=== PATIENT | female | born 1945 | race African-American/Black ===

== ENCOUNTER 2017-11-02 21:36 | Inpatient (IN) | payer OTHER ==
[2017-11-02] MEDS: IV NORMAL SALINE 1000ML BAG 1,000 ML IV ×2 (09:00→22:30)
[2017-11-02] MEDS: IPRATRPIUM/ALBUTEROL 0.5/2.5MG 3 ML NEBU. NEB (22:18)
[2017-11-02 22:19] LABS: ADD MAN DIFF? NO
[2017-11-02 22:24] LABS: BASO # 0.1 x10^3/uL (0.0-0.2); BASO % 1 % (0-3); EOS # 0.1 x10^3/uL (0.0-0.7); EOS % 2 % (0-3); HEMATOCRIT 38.8 % (36.0-47.0); HEMOGLOBIN 12.7 g/dL (12.0-15.5); LYMPH # 1.8 x10^3/uL (1.0-4.8); LYMPH % 22 % (24-48); MEAN CORPUSCULAR HEMOGLOBIN 26 pg (25-35); MEAN CORPUSCULAR HGB CONC 33 g/dL (31-37); MEAN CORPUSCULAR VOLUME 81 fL (79-100); MONO # 1.1 x10^3/uL (0.0-1.1); MONO % 13 % (0-9); NEUT # 5.1 x10^3uL (1.8-7.7); NEUT % 62 % (31-73); PLATELET COUNT 240 x10^3/uL (140-400); RED BLOOD COUNT 4.82 x10^6/uL (3.50-5.40); RED CELL DISTRIBUTION WIDTH 15.4 % (11.5-14.5); WHITE BLOOD COUNT 8.3 x10^3/uL (4.0-11.0)
[2017-11-02 22:35] LABS: ANION GAP 13 (6-14); BLOOD UREA NITROGEN 20 mg/dL (7-20); BUN/CREATININE RATIO 15 (6-20); CALCIUM 8.7 mg/dL (8.5-10.1); CARBON DIOXIDE 26 mmol/L (21-32); CHLORIDE 102 mmol/L (98-107); CREATININE 1.3 mg/dL (0.6-1.0); GFR 48.7; GLUCOSE 145 mg/dL (70-99); POTASSIUM 3.6 mmol/L (3.5-5.1); SODIUM 141 mmol/L (136-145)
[2017-11-02 22:41] LABS: ALBUMIN 3.4 g/dL (3.4-5.0); ALBUMIN/GLOBULIN RATIO 0.7 (1.0-1.7); ALK PHOS 117 U/L (46-116); ALT (SGPT) 25 U/L (14-59); AST (SGOT) 34 U/L (15-37); LIPASE 80 U/L (73-393); TOTAL BILIRUBIN 0.3 mg/dL (0.2-1.0); TOTAL PROTEIN 8.1 g/dL (6.4-8.2)
[2017-11-02 22:48] LABS: CKMB INDEX 0.1 % (0-4); CKMB MASS 0.5 ng/mL (0.0-3.6); CREATINE KINASE 356 U/L (26-192)
[2017-11-02 22:48] LABS: TROPONINI < 0.017 ng/mL (0.000-0.055)
[2017-11-02 22:55] LABS: LACTIC ACID 2.2 mmol/L (0.4-2.0)
[2017-11-02] MEDS ORDERED: levOFLOXacin PER PHARMACY. MC (23:15)
[2017-11-02 23:45] LABS: NT-PRO BNP 26 pg/mL (0-124)
[2017-11-02] MEDS ORDERED: fentaNYL PF VIAL 100 MCG/2 ML VIAL IV (23:45)
[2017-11-02] MEDS ORDERED: ONDANSETRON PF 4 MG/2 ML VIAL. IV (23:45)
[2017-11-03] MEDS: methylPREDNISolone SOD SUCC PF 40 MG/ML VIAL. IV ×4 (01:18→18:13)
[2017-11-03] MEDS: IV NORMAL SALINE 1000ML BAG 1,000 ML IV ×2 (01:58→07:36)
[2017-11-03 03:10] LABS: ADD MAN DIFF? NO
[2017-11-03 04:27] LABS: BASO % 1 % (0-3); EOS # 0.1 x10^3/uL (0.0-0.7); EOS % 1 % (0-3); HEMATOCRIT 37.4 % (36.0-47.0); HEMOGLOBIN 12.3 g/dL (12.0-15.5); LYMPH # 1.7 x10^3/uL (1.0-4.8); LYMPH % 23 % (24-48); MEAN CORPUSCULAR HEMOGLOBIN 27 pg (25-35); MEAN CORPUSCULAR HGB CONC 33 g/dL (31-37); MEAN CORPUSCULAR VOLUME 81 fL (79-100); MONO # 0.7 x10^3/uL (0.0-1.1); MONO % 10 % (0-9); NEUT # 4.7 x10^3uL (1.8-7.7); NEUT % 65 % (31-73); PLATELET COUNT 224 x10^3/uL (140-400); RED BLOOD COUNT 4.61 x10^6/uL (3.50-5.40); RED CELL DISTRIBUTION WIDTH 15.4 % (11.5-14.5); WHITE BLOOD COUNT 7.2 x10^3/uL (4.0-11.0)
[2017-11-03 05:02] LABS: ALBUMIN/GLOBULIN RATIO 0.7 (1.0-1.7); ALK PHOS 108 U/L (46-116); ALT (SGPT) 19 U/L (14-59); ANION GAP 10 (6-14); AST (SGOT) 28 U/L (15-37); BLOOD UREA NITROGEN 17 mg/dL (7-20); BUN/CREATININE RATIO 17 (6-20); CALCIUM 8.6 mg/dL (8.5-10.1); CARBON DIOXIDE 24 mmol/L (21-32); CHLORIDE 105 mmol/L (98-107); GFR 65.9; GLUCOSE 111 mg/dL (70-99); POTASSIUM 3.4 mmol/L (3.5-5.1); SODIUM 139 mmol/L (136-145); TOTAL BILIRUBIN 0.3 mg/dL (0.2-1.0); TOTAL PROTEIN 7.3 g/dL (6.4-8.2)
[2017-11-03] MEDS: IPRATRPIUM/ALBUTEROL 0.5/2.5MG 3 ML NEBU. NEB ×4 (07:28→19:13)
[2017-11-03] MEDS: POTASSIUM CHLORIDE 20 MEQ TABLET.ER. PO (10:12)
[2017-11-03] MEDS: ENOXAPARIN 40 MG/0.4 ML SYRINGE. SQ (10:12)
[2017-11-03] MEDS: IOHEXOL 300 MG/ML 100ML VIAL. IV (10:30)
[2017-11-03] MEDS ORDERED: MECLIZINE HCL 12.5 MG TABLET. PO (11:30)
[2017-11-03] MEDS: POTASSIUM CHLORIDE 10 MEQ TABLET.ER. PO (12:00)
[2017-11-03] MEDS: OMEGA-3 FATTY ACIDS/FISH OIL 1,000 MG CAPSULE. PO (13:37)
[2017-11-03] MEDS: TRIAMTERENE/HCTZ 37.5/25MG TABLET. PO (13:39)
[2017-11-03] MEDS: amLODIPine BESYLATE 10 MG TABLET PO (13:39)
[2017-11-03] MEDS: PANTOPRAZOLE 40 MG TABLET.DR. PO (13:40)
[2017-11-03] MEDS: ATORVASTATIN CALCIUM 10 MG TABLET. PO (21:30)
[2017-11-03] MEDS: ACETAMINOPHEN 325 MG TABLET. PO (21:30)
[2017-11-03] MEDS: LACTOBACILLUS RHAMNOSUS GG 1 CAPSULE. PO (21:30)
[2017-11-03] MEDS: PROMETHAZINE 6.25 MG/5 ML SYRUP. PO (21:32)
[2017-11-04] MEDS: methylPREDNISolone SOD SUCC PF 40 MG/ML VIAL. IV ×4 (01:05→21:01)
[2017-11-04 05:11] LABS: BASO % 0 % (0-3); EOS % 0 % (0-3); HEMATOCRIT 36.5 % (36.0-47.0); HEMOGLOBIN 11.4 g/dL (12.0-15.5); LYMPH # 1.1 x10^3/uL (1.0-4.8); LYMPH % 6 % (24-48); MEAN CORPUSCULAR HEMOGLOBIN 26 pg (25-35); MEAN CORPUSCULAR HGB CONC 31 g/dL (31-37); MEAN CORPUSCULAR VOLUME 82 fL (79-100); MONO # 0.4 x10^3/uL (0.0-1.1); MONO % 2 % (0-9); NEUT # 17.1 x10^3uL (1.8-7.7); NEUT % 92 % (31-73); PLATELET COUNT 245 x10^3/uL (140-400); RED BLOOD COUNT 4.46 x10^6/uL (3.50-5.40); RED CELL DISTRIBUTION WIDTH 15.4 % (11.5-14.5); WHITE BLOOD COUNT 18.7 x10^3/uL (4.0-11.0)
[2017-11-04 05:31] LABS: ADD MAN DIFF? YES
[2017-11-04 05:32] LABS: ALBUMIN/GLOBULIN RATIO 0.7 (1.0-1.7); ALK PHOS 99 U/L (46-116); ALT (SGPT) 23 U/L (14-59); ANION GAP 12 (6-14); AST (SGOT) 28 U/L (15-37); BLOOD UREA NITROGEN 16 mg/dL (7-20); BUN/CREATININE RATIO 13 (6-20); CALCIUM 8.3 mg/dL (8.5-10.1); CARBON DIOXIDE 23 mmol/L (21-32); CHLORIDE 108 mmol/L (98-107); CREATININE 1.2 mg/dL (0.6-1.0); GFR 53.4; GLUCOSE 154 mg/dL (70-99); POTASSIUM 4.2 mmol/L (3.5-5.1); SODIUM 143 mmol/L (136-145); TOTAL BILIRUBIN 0.2 mg/dL (0.2-1.0); TOTAL PROTEIN 7.5 g/dL (6.4-8.2)
[2017-11-04] MEDS: PANTOPRAZOLE 40 MG TABLET.DR. PO (05:57)
[2017-11-04] MEDS: LEVOTHYROXINE 75 MCG TABLET PO (05:57)
[2017-11-04] MEDS: IPRATRPIUM/ALBUTEROL 0.5/2.5MG 3 ML NEBU. NEB ×4 (07:08→20:01)
[2017-11-04 07:31] LABS: % BANDS 9 % (0-9); % LYMPHS 5 % (24-48); % MONOS 1 % (0-10); % SEGS 85 % (35-66); PLT ESTIMATE ADEQUATE (ADEQUATE)
[2017-11-04] MEDS: ENOXAPARIN 40 MG/0.4 ML SYRINGE. SQ (08:10)
[2017-11-04] MEDS: OMEGA-3 FATTY ACIDS/FISH OIL 1,000 MG CAPSULE. PO (08:11)
[2017-11-04] MEDS: amLODIPine BESYLATE 10 MG TABLET PO (08:13)
[2017-11-04] MEDS: TRIAMTERENE/HCTZ 37.5/25MG TABLET. PO (08:14)
[2017-11-04] MEDS: LACTOBACILLUS RHAMNOSUS GG 1 CAPSULE. PO ×2 (08:14→20:56)
[2017-11-04] MEDS: POTASSIUM CHLORIDE 10 MEQ TABLET.ER. PO (10:08)
[2017-11-04] MEDS ORDERED: SALIVA STIMULANT AGENT 44ML SPRAY BOTTLE. PO (13:30)
[2017-11-04] MEDS: PROMETHAZINE 6.25 MG/5 ML SYRUP. PO (20:57)
[2017-11-04] MEDS: ATORVASTATIN CALCIUM 10 MG TABLET. PO (20:57)
[2017-11-05 03:35] LABS: ADD MAN DIFF? NO
[2017-11-05 03:57] LABS: BASO % 0 % (0-3); EOS % 0 % (0-3); HEMATOCRIT 34.4 % (36.0-47.0); LYMPH # 0.9 x10^3/uL (1.0-4.8); LYMPH % 4 % (24-48); MEAN CORPUSCULAR HEMOGLOBIN 26 pg (25-35); MEAN CORPUSCULAR HGB CONC 32 g/dL (31-37); MEAN CORPUSCULAR VOLUME 81 fL (79-100); MONO # 0.6 x10^3/uL (0.0-1.1); MONO % 3 % (0-9); NEUT # 20.6 x10^3uL (1.8-7.7); NEUT % 93 % (31-73); PLATELET COUNT 254 x10^3/uL (140-400); RED BLOOD COUNT 4.23 x10^6/uL (3.50-5.40); WHITE BLOOD COUNT 22.1 x10^3/uL (4.0-11.0)
[2017-11-05 04:21] LABS: ANION GAP 10 (6-14); BLOOD UREA NITROGEN 19 mg/dL (7-20); CALCIUM 8.4 mg/dL (8.5-10.1); CARBON DIOXIDE 25 mmol/L (21-32); CHLORIDE 109 mmol/L (98-107); CREATININE 1.1 mg/dL (0.6-1.0); GFR 59.1; GLUCOSE 174 mg/dL (70-99); POTASSIUM 3.8 mmol/L (3.5-5.1); SODIUM 144 mmol/L (136-145)
[2017-11-05] MEDS: LEVOTHYROXINE 75 MCG TABLET PO (05:41)
[2017-11-05] MEDS: PANTOPRAZOLE 40 MG TABLET.DR. PO (05:41)
[2017-11-05] MEDS: IPRATRPIUM/ALBUTEROL 0.5/2.5MG 3 ML NEBU. NEB ×4 (06:57→18:06)
[2017-11-05] MEDS: POTASSIUM CHLORIDE 10 MEQ TABLET.ER. PO (08:24)
[2017-11-05] MEDS: LACTOBACILLUS RHAMNOSUS GG 1 CAPSULE. PO ×2 (08:25→21:51)
[2017-11-05] MEDS: OMEGA-3 FATTY ACIDS/FISH OIL 1,000 MG CAPSULE. PO (08:25)
[2017-11-05] MEDS: amLODIPine BESYLATE 10 MG TABLET PO (08:26)
[2017-11-05] MEDS: TRIAMTERENE/HCTZ 37.5/25MG TABLET. PO (08:26)
[2017-11-05] MEDS: methylPREDNISolone SOD SUCC PF 40 MG/ML VIAL. IV ×4 (08:26→21:51)
[2017-11-05] MEDS: ENOXAPARIN 40 MG/0.4 ML SYRINGE. SQ (08:30)
[2017-11-05] MEDS: ATORVASTATIN CALCIUM 10 MG TABLET. PO (21:51)
[2017-11-06] MEDS: IPRATRPIUM/ALBUTEROL 0.5/2.5MG 3 ML NEBU. NEB ×4 (07:06→20:26)
[2017-11-06] MEDS: methylPREDNISolone SOD SUCC PF 40 MG/ML VIAL. IV (07:22)
[2017-11-06] MEDS: LEVOTHYROXINE 75 MCG TABLET PO (07:23)
[2017-11-06] MEDS: PANTOPRAZOLE 40 MG TABLET.DR. PO (07:23)
[2017-11-06] MEDS: OMEGA-3 FATTY ACIDS/FISH OIL 1,000 MG CAPSULE. PO (08:59)
[2017-11-06] MEDS: ENOXAPARIN 40 MG/0.4 ML SYRINGE. SQ (08:59)
[2017-11-06] MEDS: LACTOBACILLUS RHAMNOSUS GG 1 CAPSULE. PO ×2 (09:00→21:01)
[2017-11-06] MEDS: TRIAMTERENE/HCTZ 37.5/25MG TABLET. PO (09:00)
[2017-11-06] MEDS: POTASSIUM CHLORIDE 10 MEQ TABLET.ER. PO (09:01)
[2017-11-06] MEDS: amLODIPine BESYLATE 10 MG TABLET PO (09:01)
[2017-11-06] MEDS ORDERED: predniSONE 10 MG TABLET PO (10:15)
[2017-11-06] MEDS: predniSONE 10 MG TABLET PO (15:14)
[2017-11-06] MEDS: ATORVASTATIN CALCIUM 10 MG TABLET. PO (21:01)
[2017-11-07] MEDS: PANTOPRAZOLE 40 MG TABLET.DR. PO (06:19)
[2017-11-07] MEDS: LEVOTHYROXINE 75 MCG TABLET PO (06:19)
[2017-11-07] MEDS: ENOXAPARIN 40 MG/0.4 ML SYRINGE. SQ (09:13)
[2017-11-07] MEDS: LACTOBACILLUS RHAMNOSUS GG 1 CAPSULE. PO (09:13)
[2017-11-07] MEDS: amLODIPine BESYLATE 10 MG TABLET PO (09:15)
[2017-11-07] MEDS: OMEGA-3 FATTY ACIDS/FISH OIL 1,000 MG CAPSULE. PO (09:16)
[2017-11-07] MEDS: TRIAMTERENE/HCTZ 37.5/25MG TABLET. PO (09:18)
[2017-11-07] MEDS: predniSONE 20 MG TABLET PO (09:18)
[2017-11-07] MEDS: POTASSIUM CHLORIDE 10 MEQ TABLET.ER. PO (09:18)
[2017-11-07] MEDS: IPRATRPIUM/ALBUTEROL 0.5/2.5MG 3 ML NEBU. NEB ×2 (09:40→12:41)
== END 2017-11-07 14:20 | disposition home or self-care (01) | DRG 871 ==
LOC: 4 NORTH 23:05 → ER 21:36
DX: A41.9 Sepsis, unspecified organism (principal); J18.9 Pneumonia, unspecified organism; J96.01 Acute respiratory failure with hypoxia; I10 Essential (primary) hypertension; E03.9 Hypothyroidism, unspecified; E78.00 Pure hypercholesterolemia, unspecified; E78.5 Hyperlipidemia, unspecified; J98.01 Acute bronchospasm; R65.20 Severe sepsis without septic shock; Z82.5 Family history of asthma and other chronic lower respiratory diseases; Z87.442 Personal history of urinary calculi
CPT/HCPCS: 36415; 71045; 71046; 71275; 76536; 80048; 80053; 82553; 83605; 83690; 83880; 84484; 85007; 85025; 87040; 87070; 87205; 93005; 94618; 94640; 94760; 96365; 96366; 97116-GP; 97161-GP; 97165-GO; 99285; 99285-25; J1650; J1956; J2920; J7030; J7512; J7620; Q9967

== ENCOUNTER → 2017-11-26 | Outpatient (CLI) | payer OTHER | END | disposition home or self-care (01) | LOC: RAD 11:46 | DX: J18.8 Other pneumonia, unspecified organism (principal) | CPT/HCPCS: 71046 ==

== ENCOUNTER → 2017-12-13 | Outpatient (CLI) | payer OTHER | END | disposition home or self-care (01) | LOC: MAMMO 13:47 | DX: Z12.31 Encounter for screening mammogram for malignant neoplasm of breast (principal) | CPT/HCPCS: 77063; 77067 ==

== ENCOUNTER → 2018-01-24 | Outpatient (CLI) | payer OTHER | END | disposition home or self-care (01) | LOC: KCIC DEXA 11:48 | DX: Z13.820 Encounter for screening for osteoporosis (principal); N95.8 Other specified menopausal and perimenopausal disorders; E03.9 Hypothyroidism, unspecified; E78.5 Hyperlipidemia, unspecified; I10 Essential (primary) hypertension; E78.00 Pure hypercholesterolemia, unspecified | CPT/HCPCS: 77080 ==

== ENCOUNTER → 2019-01-08 | Outpatient (CLI) | payer OTHER ==
[2017-11-07 11:00] VITALS: BP 134/61
[~2019-01-08] MED LIST: AMLO10TA8 PO; CALC500T54 PO; HYDR-2869 PO; LEVO500T59 PO; LEVO75TA5 PO; MECL25TA3 PO; OMEG-165 PO; POTA10TA12 PO; POTASSIUM CL PO; PRAV20TA2 PO; PRED20TA PO; PROM6.257 PO; TRIA1TAB3 PO
--- NOTE | 2019-01-08 17:07 | RAD ---
DATE: 01/08/2019 EXAM: MAMMO DELISA SCREENING BILATERAL HISTORY: Routine screening COMPARISON: 10/27/2014, 10/28/2015, 11/16/2016, 12/13/2017 mammographic exams This study was interpreted with the benefit of Computerized Aided Detection (CAD). Breast Density: FATTY The breast parenchyma is primarily fatty replaced. Breast parenchyma level density A. FINDINGS: Small asymmetry involving the left upper breast on the MLO projection is new since the previous exams. It is 4 cm from the level. No dominant mass, suspicious calcifications, or definite distortion. IMPRESSION: Spot compression imaging of the left upper breast recommended. Ultrasound may be needed. BI-RADS CATEGORY: 0 INCOMPLETE: NEEDS ADDITIONAL IMAGING EVALUATION AND/OR PRIOR MAMMOGRAMS FOR COMPARISON. RECOMMENDED FOLLOW-UP: ADD ADDITIONAL IMAGING PQRS compliance statement: Patient information was entered into a reminder system with a target due date pending additional imaging for the next mammogram. Mammography is a sensitive method for finding small breast cancers, but it does not detect them all and is not a substitute for careful clinical examination. A negative mammogram does not negate a clinically suspicious finding and should not result in delay in biopsying a clinically suspicious abnormality. "Our facility is accredited by the [employer] Mammography Program."
== END | disposition home or self-care (01) ==
LOC: MAMMO 14:12
PROVIDERS: ATTEND Family Medicine
DX: Z12.31 Encounter for screening mammogram for malignant neoplasm of breast (principal); N64.89 Other specified disorders of breast
CPT/HCPCS: 77063; 77067

== ENCOUNTER → 2019-01-22 | Outpatient (CLI) | payer OTHER ==
[2017-11-07 11:00] VITALS: BP 134/61
--- NOTE | 2019-01-22 14:24 | RAD ---
DATE: 01/22/2019. EXAM: DIGITAL DIAGNOSTIC LT HISTORY: Callback left breast. COMPARISON: Most recent screening mammogram from 01/08/2019. This study was interpreted with the benefit of Computerized Aided Detection (CAD). FINDINGS: Breast Density: SCATTERED The breast parenchyma shows scattered fibroglandular densities. Breast parenchyma level B. The spot compression view of the left breast in MLO projection demonstrates persistent asymmetry. IMPRESSION: Persistent asymmetry in the upper left breast. Please see ultrasound report from the same day. BI-RADS CATEGORY: 3 PROBABLE BENIGN FINDING(S-SHORT INTERVAL FOLLOW-UP SUGGESTED RECOMMENDED FOLLOW-UP: 6M 6 MONTH FOLLOW-UP. Follow-up left breast mammogram in 4-6 months recommended. PQRS compliance statement: Patient information was entered into a reminder system with a target due date for the next mammogram. Mammography is a sensitive method for finding small breast cancers, but it does not detect them all and is not a substitute for careful clinical examination. A negative mammogram does not negate a clinically suspicious finding and should not result in delay in biopsying a clinically suspicious abnormality. "Our facility is accredited by the [employer] Mammography Program."
--- NOTE | 2019-01-22 14:32 | RAD ---
Indication: Left breast callback. TECHNIQUE: Grayscale and color Doppler images of the left outer breast COMPARISON: Same day diagnostic mammogram FINDINGS: No solid or cystic lesion seen in the interrogated left outer breast corresponding to mammographically seen abnormality. Small morphologically normal appearing lymph node is seen in the left axilla. IMPRESSION: No sonographic abnormalities. BI-RADS 3: Probably benign. Follow-up left breast mammogram in 4-6 months recommended. Electronically signed by: Lenin Stovall DO (01/22/2019 2:29 PM) [facility]
== END | disposition home or self-care (01) ==
LOC: MAMMO 14:15
PROVIDERS: ATTEND Family Medicine
DX: R92.2 Inconclusive mammogram (principal)
CPT/HCPCS: 76641; 77065

== ENCOUNTER 2019-05-06 19:08 | Inpatient (IN) | payer OTHER ==
[~2019-05-06] VITALS: Ht 162.6 cm; Wt 77.1 kg
[2019-05-06 19:40] LABS: FECAL OB PT POSITIVE (NEG)
[2019-05-06 19:53] LABS: BASO # 0.1 x10^3/uL (0.0-0.2); BASO % 1 % (0-3); EOS # 0.2 x10^3/uL (0.0-0.7); EOS % 2 % (0-3); HEMATOCRIT 38.1 % (36.0-47.0); HEMOGLOBIN 12.4 g/dL (12.0-15.5); LYMPH % 21 % (24-48); MEAN CORPUSCULAR HEMOGLOBIN 26 pg (25-35); MEAN CORPUSCULAR HGB CONC 33 g/dL (31-37); MEAN CORPUSCULAR VOLUME 80 fL (79-100); MONO # 0.7 x10^3/uL (0.0-1.1); MONO % 7 % (0-9); NEUT # 6.8 x10^3/uL (1.8-7.7); NEUT % 69 % (31-73); PLATELET COUNT 333 x10^3/uL (140-400); RED BLOOD COUNT 4.77 x10^6/uL (3.50-5.40); RED CELL DISTRIBUTION WIDTH 15.3 % (11.5-14.5); WHITE BLOOD COUNT 9.8 x10^3/uL (4.0-11.0)
[2019-05-06 20:03] LABS: CALCIUM 9.4 mg/dL (8.5-10.1); CREATININE 1.2 mg/dL (0.6-1.0); GFR 53.3; POTASSIUM 3.2 mmol/L (3.5-5.1); PROTHROMBIN TIME PATIENT 11.9 SEC (11.7-14.0)
[2019-05-06 20:06] LABS: ALBUMIN 4.1 g/dL (3.4-5.0); TOTAL BILIRUBIN 0.2 mg/dL (0.2-1.0); TOTAL PROTEIN 8.4 g/dL (6.4-8.2)
[2019-05-06] MEDS ORDERED: ONDANSETRON PF 4 MG/2 ML VIAL. IV PRN (22:00)
--- NOTE | 2019-05-06 22:30 | PHYS DOC ---
Past Medical History Past Medical History: High Cholesterol, Hypertension, Hypothyroid Additional Past Medical Histor: VERTIGO Past Surgical History: No Surgical History Additional Past Surgical Histo: THYROID Alcohol Use: None Drug Use: None Adult General Chief Complaint Chief Complaint: RECTAL BLEED HPI HPI Patient is a 73 year old female who presents to the ED with a chief complaint of rectal bleeding. Patient states that earlier this morning she had a little bit of blood in her stool. Patient states that in the evening around 5 PM she had a bowel movement which had a lot of blood in it. Since then she has been having blood from her rectum. Patient denies being on blood thinners. Patient denies abdominal pain. Review of Systems Review of Systems Constitutional: Denies fever or chills [] HENT: Denies nasal congestion or sore throat [] Respiratory: Denies cough or shortness of breath [] Cardiovascular: Denies chest pain[] GI: Denies abdominal pain, nausea, vomiting. Complains of rectal bleeding : Denies dysuria or hematuria [] Musculoskeletal: Denies back pain or joint pain [] Neurologic: Denies headache, focal weakness or sensory changes [] All other systems were reviewed and found to be within normal limits, except as documented in this note. Allergies Allergies Allergies Coded Allergies Type Severity Reaction Last Updated Verified No Known Drug Allergies 11/27/15 No Physical Exam Physical Exam Constitutional: Well developed, well nourished, no acute distress, non-toxic appearance. [] HENT: Normocephalic, atraumatic Eyes: PERRLA, EOMI, conjunctiva normal, no discharge. [] Neck: Normal range of motion, no tenderness, supple Cardiovascular:Heart rate regular rhythm, no murmur [] Lungs & Thorax: Bilateral breath sounds clear to auscultation [] Abdomen: Bowel sounds normal, soft, no tenderness Extremities: No tenderness, no cyanosis, no clubbing, ROM intact, no edema. [] Neurologic: Alert and oriented X 3, normal motor function, normal sensory function, no focal deficits noted. [] Current Patient Data Vital Signs Vital Signs Date Time Temp Pulse Resp B/P (MAP) Pulse Ox O2 Delivery O2 Flow Rate FiO2 05/06/19 20:00 86 16 119/65 (83) 98 Room Air 05/06/19 19:13 99.0 99.0 Lab Values Laboratory Tests Test 05/06/19 19:25 05/06/19 19:45 Stool Occult Blood Positive (NEG) White Blood Count 9.8 x10^3/uL (4.0-11.0) Red Blood Count 4.77 x10^6/uL (3.50-5.40) Hemoglobin 12.4 g/dL (12.0-15.5) Hematocrit 38.1 % (36.0-47.0) Mean Corpuscular Volume 80 fL (79-100) Mean Corpuscular Hemoglobin 26 pg (25-35) Mean Corpuscular Hemoglobin Concent 33 g/dL (31-37) Red Cell Distribution Width 15.3 % (11.5-14.5) H Platelet Count 333 x10^3/uL (140-400) Neutrophils (%) (Auto) 69 % (31-73) Lymphocytes (%) (Auto) 21 % (24-48) L Monocytes (%) (Auto) 7 % (0-9) Eosinophils (%) (Auto) 2 % (0-3) Basophils (%) (Auto) 1 % (0-3) Neutrophils # (Auto) 6.8 x10^3/uL (1.8-7.7) Lymphocytes # (Auto) 2.0 x10^3/uL (1.0-4.8) Monocytes # (Auto) 0.7 x10^3/uL (0.0-1.1) Eosinophils # (Auto) 0.2 x10^3/uL (0.0-0.7) Basophils # (Auto) 0.1 x10^3/uL (0.0-0.2) Prothrombin Time 11.9 SEC (11.7-14.0) Prothrombin Time INR 0.9 (0.8-1.1) Activated Partial Thromboplast Time 32 SEC (24-38) Sodium Level 143 mmol/L (136-145) Potassium Level 3.2 mmol/L (3.5-5.1) L Chloride Level 104 mmol/L (98-107) Carbon Dioxide Level 26 mmol/L (21-32) Anion Gap 13 (6-14) Blood Urea Nitrogen 24 mg/dL (7-20) H Creatinine 1.2 mg/dL (0.6-1.0) H Estimated GFR (Cockcroft-Gault) 53.3 BUN/Creatinine Ratio 20 (6-20) Glucose Level 126 mg/dL (70-99) H Calcium Level 9.4 mg/dL (8.5-10.1) Total Bilirubin 0.2 mg/dL (0.2-1.0) Aspartate Amino Transferase (AST) 21 U/L (15-37) Alanine Aminotransferase (ALT) 18 U/L (14-59) Alkaline Phosphatase 131 U/L (46-116) H Total Protein 8.4 g/dL (6.4-8.2) H Albumin 4.1 g/dL (3.4-5.0) Albumin/Globulin Ratio 1.0 (1.0-1.7) Laboratory Tests 05/06/19 19:45 Laboratory Tests 05/06/19 19:45 EKG EKG [] Radiology/Procedures Radiology/Procedures [] Course & Med Decision Making Course & Med Decision Making Pertinent Labs reviewed. (See chart for details) Patient's hemoglobin is stable at 12.4. INR is within normal limits as well. Patient does not take any blood thinners. Patient does not complain of any abdominal tenderness. Digitorectal exam shows julio red blood from the rectum. Patient had a lot of bleeding from the rectum in the ED. Will admit patient for further evaluation and treatment. Discussed results and plan of care patient. Discussed case with Dr. Ayala for admission. Dragon Disclaimer Dragon Disclaimer This electronic medical record was generated, in whole or in part, using a voice recognition dictation system. Departure Departure Impression: Primary Impression: Rectal bleeding Additional Impression: Syncope Disposition: 09 ADMITTED INPATIENT Condition: STABLE Referrals: SUZI DO (PCP) Problem Qualifiers EFRAIN ROME DO May 06, 2019 22:30
--- NOTE | 2019-05-06 22:30 | NUR ---
The patient, CARLOS RODRIGUEZ, 73 y/o, F admitted by JEANNIE RAMÍREZ MD, was given written information regarding hospital policies, unit procedures and contact persons. Patient was transported from the ED to room 676 at 2230 via gurney with son at bedside. RN performed a head to toe assessment at that time, VSS, afebrile, pain rated a 0/10. Bed is in lowest locked position and call light is within reach. Valuables were checked and left in the room with the patient. RN will continue to monitor patient closely.
[2019-05-06 23:40] VITALS: BP 150/62
[2019-05-06] MEDS ORDERED: CALC500T54 PO (23:50)
[2019-05-06] MEDS ORDERED: ASPI-630 PO (23:56)
[2019-05-07 03:40] VITALS: BP 121/54
[2019-05-07 06:39] LABS: BASO % 1 % (0-3); EOS # 0.1 x10^3/uL (0.0-0.7); EOS % 2 % (0-3); HEMATOCRIT 28.9 % (36.0-47.0); HEMOGLOBIN 9.4 g/dL (12.0-15.5); LYMPH # 1.9 x10^3/uL (1.0-4.8); LYMPH % 30 % (24-48); MEAN CORPUSCULAR HEMOGLOBIN 26 pg (25-35); MEAN CORPUSCULAR HGB CONC 33 g/dL (31-37); MEAN CORPUSCULAR VOLUME 81 fL (79-100); MONO # 0.7 x10^3/uL (0.0-1.1); MONO % 11 % (0-9); NEUT # 3.6 x10^3/uL (1.8-7.7); NEUT % 56 % (31-73); PLATELET COUNT 239 x10^3/uL (140-400); RED BLOOD COUNT 3.56 x10^6/uL (3.50-5.40); RED CELL DISTRIBUTION WIDTH 15.3 % (11.5-14.5); WHITE BLOOD COUNT 6.5 x10^3/uL (4.0-11.0)
[2019-05-07 07:00] VITALS: BP 125/66
[2019-05-07] MEDS: IV NORMAL SALINE 1000ML BAG 1,000 ML IV SCH (09:05)
--- NOTE | 2019-05-07 09:15 | PDOC2 ---
GI CONSULT Reason For Consult: Rectal bleeding HPI: HPI: Chema 73 y/o female admitted through ER. Noticed some light blood yesterday after exercise class, then passed significant amount a couple more times yesterday - bright red w/ clots. Ongoing bleeding - last occurred ~45 min ago. Hgb 12.4 to 9.4 (previous average 11-12 range), BUN 24, Cr 1.2, Alk Phos 131, fecal occult positive. No reflux/heartburn, n/v, abd pain, diarrhea, constipation, melena, change in appetite, weight loss, or early satiety. No dizziness, SOA, or sweats. No previous EGD. Had colonoscopy by Dr. Stovall @ [facility] in 2011 w/ diverticulosis. No GB, liver, pancreas, or PUD history. ASA 81mg QD, no NSAIDs. PMH: PMH: HTN, HLD, hypothyroidism, syncope, vestibular neuronitis thyroidectomy FH: Family History: Cancer (breast - sister, colon - brother) Social History: Smoke: No ALCOHOL: none Drugs: None ROS: GEN: Denies fevers, chills, sweats HEENT: Denies blurred vision, sore throat CV: Denies chest pain RESP: Denies shortness of air, cough GI: Per HPI : Denies hematuria, dysuria ENDO: Denies weight changes NEURO: Denies confusion, dizziness MSK: Denies weakness, joint pain/swelling SKIN: Denies jaundice, pruritus Vitals: Vitals: Vital Signs Date Time Temp Pulse Resp B/P (MAP) Pulse Ox O2 Delivery O2 Flow Rate FiO2 05/07/19 07:00 98.5 75 12 125/66 (85) 96 Room Air 98.5 Labs: Labs: Laboratory Tests Test 05/06/19 19:25 05/06/19 19:45 05/07/19 04:26 Stool Occult Blood Positive (NEG) White Blood Count 9.8 x10^3/uL (4.0-11.0) 6.5 x10^3/uL (4.0-11.0) Red Blood Count 4.77 x10^6/uL (3.50-5.40) 3.56 x10^6/uL (3.50-5.40) Hemoglobin 12.4 g/dL (12.0-15.5) 9.4 g/dL (12.0-15.5) Hematocrit 38.1 % (36.0-47.0) 28.9 % (36.0-47.0) Mean Corpuscular Volume 80 fL (79-100) 81 fL (79-100) Mean Corpuscular Hemoglobin 26 pg (25-35) 26 pg (25-35) Mean Corpuscular Hemoglobin Concent 33 g/dL (31-37) 33 g/dL (31-37) Red Cell Distribution Width 15.3 % (11.5-14.5) 15.3 % (11.5-14.5) Platelet Count 333 x10^3/uL (140-400) 239 x10^3/uL (140-400) Neutrophils (%) (Auto) 69 % (31-73) 56 % (31-73) Lymphocytes (%) (Auto) 21 % (24-48) 30 % (24-48) Monocytes (%) (Auto) 7 % (0-9) 11 % (0-9) Eosinophils (%) (Auto) 2 % (0-3) 2 % (0-3) Basophils (%) (Auto) 1 % (0-3) 1 % (0-3) Neutrophils # (Auto) 6.8 x10^3/uL (1.8-7.7) 3.6 x10^3/uL (1.8-7.7) Lymphocytes # (Auto) 2.0 x10^3/uL (1.0-4.8) 1.9 x10^3/uL (1.0-4.8) Monocytes # (Auto) 0.7 x10^3/uL (0.0-1.1) 0.7 x10^3/uL (0.0-1.1) Eosinophils # (Auto) 0.2 x10^3/uL (0.0-0.7) 0.1 x10^3/uL (0.0-0.7) Basophils # (Auto) 0.1 x10^3/uL (0.0-0.2) 0.0 x10^3/uL (0.0-0.2) Prothrombin Time 11.9 SEC (11.7-14.0) Prothromb Time International Ratio 0.9 (0.8-1.1) Activated Partial Thromboplast Time 32 SEC (24-38) Sodium Level 143 mmol/L (136-145) Potassium Level 3.2 mmol/L (3.5-5.1) Chloride Level 104 mmol/L (98-107) Carbon Dioxide Level 26 mmol/L (21-32) Anion Gap 13 (6-14) Blood Urea Nitrogen 24 mg/dL (7-20) Creatinine 1.2 mg/dL (0.6-1.0) Estimated GFR (Cockcroft-Gault) 53.3 BUN/Creatinine Ratio 20 (6-20) Glucose Level 126 mg/dL (70-99) Calcium Level 9.4 mg/dL (8.5-10.1) Total Bilirubin 0.2 mg/dL (0.2-1.0) Aspartate Amino Transf (AST/SGOT) 21 U/L (15-37) Alanine Aminotransferase (ALT/SGPT) 18 U/L (14-59) Alkaline Phosphatase 131 U/L (46-116) Total Protein 8.4 g/dL (6.4-8.2) Albumin 4.1 g/dL (3.4-5.0) Albumin/Globulin Ratio 1.0 (1.0-1.7) Allergies: Coded Allergies: No Known Drug Allergies (Unverified , 11/27/15) Medications: Current Medications Medications (Trade) Dose Ordered Sig/Geetha Route PRN Reason Start Time Stop Time Status Last Admin Dose Admin Sodium Chloride 1,000 ml @ 75 mls/hr [id number] IV 05/07/19 09:00 05/07/19 09:05 Imaging: Imaging: None. PE: GEN: NAD HEENT: Atraumatic, PERRL LUNGS: CTAB HEART: RRR ABD: NABS, S/ND/NT EXTREMITY: No edema SKIN: No rashes, no jaundice NEURO/PSYCH: A & O 3 A/P: A/P: Hematochezia CRC screen - UTD Diverticulosis ASA use -- ?diverticular bleed Check bleeding scan. NPO w/ a few ice chips per her request. Currently without IVF - d/w nurse - start NS @ 75/hr, defer management to primary. Empiric acid-construction engineering manager. Recheck Hgb. Hold ASA. RONAN COPE May 07, 2019 09:15
[2019-05-07] MEDS ORDERED: HEPARIN for NUC MED 500 UNIT/5 ML DISP.SYRIN. IV ONE (10:00)
--- NOTE | 2019-05-07 10:11 | PDOC ---
Provider Note Provider Note Pt seen.H&P dictated .Lower GI bleed ?diverticular bleed,#[id number]. JEANNIE RAMÍREZ MD May 07, 2019 10:11
[2019-05-07 11:00] VITALS: BP 118/72
[2019-05-07 11:03] LABS: HEMATOCRIT 28.8 % (36.0-47.0); HEMOGLOBIN 9.4 g/dL (12.0-15.5)
[2019-05-07 11:46] LABS: BILIRUBIN,URINE NEGATIVE (NEG); CLARITY,URINE CLEAR; COLOR,URINE YELLOW; NITRITE,URINE NEGATIVE (NEG); PH,URINE 5.5; PROTEIN,URINE NEGATIVE (NEG-TRACE); UROBILINOGEN,URINE 0.2 mg/dL (0.2 mg/dL)
[2019-05-07 12:04] LABS: SQUAMOUS EPITHELIAL CELL,UR OCC /LPF
[2019-05-07 12:06] LABS: BACTERIA,URINE 0 /HPF (0-FEW); HYALINE CASTS, URINE OCCASIONAL /HPF; RBC,URINE RARE /HPF (0-2)
--- NOTE | 2019-05-07 12:54 | HP ---
ADMIT DATE: 05/06/2019 LOCATION: [facility]. ATTENDING PHYSICIAN: Jeannie Ayala MD. PRIMARY CARE PHYSICIAN: Dr. Dennis. REASON FOR ADMISSION TO THE HOSPITAL: Rectal bleed. HISTORY OF PRESENT ILLNESS: The patient is a 73-year-old female, in pretty good health. She noticed some blood yesterday, got progressively worse by the evening and without any stools and she came to the Emergency Room. Hemoccult was positive on rectal exam. The patient had a colonoscopy in 2011. At that time, there was some diverticulosis. The patient was admitted to the hospital and GI was consulted. PAST MEDICAL HISTORY: Hypertension, hyperlipidemia, hypothyroidism, vestibular neuronitis. SURGICAL HISTORY: Thyroidectomy, colonoscopy in 2011, had some diverticulosis. FAMILY HISTORY: Breast cancer in the sister, colon cancer in the brother. SOCIAL HISTORY: Denies smoking, alcohol, or drug abuse. ALLERGIES: No known drug allergies. MEDICATIONS: Amlodipine 10 mg daily, aspirin 81 mg daily, hydralazine 50 mg 3 times daily, Dyazide 1 daily, calcium daily, meclizine 25 mg, fish oil daily, pravastatin 20 mg daily, potassium 8 mEq daily. REVIEW OF SYMPTOMS: Denies any chest pain, shortness of breath. PHYSICAL EXAMINATION: GENERAL: Pleasant, not in any distress. VITAL SIGNS: At the time of admission shows temperature 99, pulse 99, respirations 16, blood pressure 134/60, and 98 on room air. HEENT: Head is atraumatic. Pupils equal. Oral cavity: No congestion. NECK: Supple. Thyroid not enlarged. JVD not elevated. CHEST: Symmetrical. CARDIOVASCULAR: S1, S2. LUNGS: Clear. ABDOMEN: Soft, nontender, bowel sounds present, no mass palpable. EXTERNAL GENITALIA: No Cantu. RECTAL: Deferred. EXTREMITIES: No calf tenderness, no edema. Pulses 1+. NEUROLOGIC: Moving all extremities. No focal deficits noted. LABORATORY DATA: Shows a white count of 10, hemoglobin 12.4, dropped down to 9.4, platelets 333. INR is 0.9. Electrolytes show sodium 143, potassium 3.2, chloride 104, bicarbonate 26, BUN 24, creatinine 1.2, glucose 126. LFTs were normal. Urine was negative. Stool was positive for blood. FINAL IMPRESSION: 1. Rectal bleed, secondary to probably diverticulosis. 2. Hypertension. 3. Hyperlipidemia. 4. Vestibular neuronitis. 5. Hypokalemia. PLAN: At this time, was admitted to the hospital. Serial hemoglobin, type and crossed, and GI is consulted. GI bleeding scan. Hold aspirin and hopefully is self-limited and should able to control the bleeding. I discussed other surgical options, arterial embolization and sigmoid colon resection, if continues to have bleeding. JEANNIE AYALA MD DR: LUIS/stephanie JOB#: [id number] / [id number]
[2019-05-07 15:00] VITALS: BP_SYST 117; BP_SYST 128; BP_DIAS 36; BP_DIAS 63
--- NOTE | 2019-05-07 15:38 | RAD ---
RADIONUCLIDE TAGGED RBC SCAN Clinical History: GI bleed, hematochezia, diverticulosis. Technique: 33 mCi Tc-99m labeled red blood cells prepared with Ultratag technique were administered intravenously. Anterior dynamic images of the abdomen were obtained for 60 minutes. Findings: There is tracer seen within the vascular pool. There is no accumulation or propagation of tracer to suggest an active bleed. Small amount of tracer accumulates in the urinary bladder, normal. IMPRESSION: No evidence of acute GI bleed. Electronically signed by: Oracio Soto MD (05/07/2019 3:35 PM) [id number]
[2019-05-07] MEDS: PANTOPRAZOLE IV PUSH 40 MG VIAL. IVP SCH (16:19)
[2019-05-07] MEDS: amLODIPine BESYLATE 10 MG TABLET PO SCH (16:20)
[2019-05-07 19:25] VITALS: BP 112/48
[2019-05-07] MEDS: ATORVASTATIN CALCIUM 10 MG TABLET. PO SCH (21:33)
[2019-05-07 23:00] VITALS: BP 103/46
[2019-05-08] MEDS: IV NORMAL SALINE 1000ML BAG 1,000 ML IV SCH (02:08)
[2019-05-08 03:55] VITALS: BP 106/49
[2019-05-08 05:57] LABS: BASO % 0 % (0-3); EOS # 0.2 x10^3/uL (0.0-0.7); EOS % 2 % (0-3); HEMATOCRIT 25.3 % (36.0-47.0); HEMOGLOBIN 8.2 g/dL (12.0-15.5); LYMPH # 1.5 x10^3/uL (1.0-4.8); LYMPH % 24 % (24-48); MEAN CORPUSCULAR HEMOGLOBIN 27 pg (25-35); MEAN CORPUSCULAR HGB CONC 33 g/dL (31-37); MEAN CORPUSCULAR VOLUME 82 fL (79-100); MONO # 0.5 x10^3/uL (0.0-1.1); MONO % 8 % (0-9); NEUT # 4.1 x10^3/uL (1.8-7.7); NEUT % 65 % (31-73); PLATELET COUNT 223 x10^3/uL (140-400); RED BLOOD COUNT 3.11 x10^6/uL (3.50-5.40); RED CELL DISTRIBUTION WIDTH 15.4 % (11.5-14.5); WHITE BLOOD COUNT 6.3 x10^3/uL (4.0-11.0)
[2019-05-08 06:07] LABS: CALCIUM 8.3 mg/dL (8.5-10.1); CREATININE 0.9 mg/dL (0.6-1.0); GFR 74.3
[2019-05-08 06:16] LABS: POTASSIUM 2.7 mmol/L (3.5-5.1)
[2019-05-08] MEDS ORDERED: POTASSIUM CHLORIDE 20 MEQ TABLET.ER. PO ONE ×2 (06:45→08:30)
[2019-05-08 07:55] VITALS: BP 101/51
[2019-05-08] MEDS: POTASSIUM CHLORIDE 20 MEQ TABLET.ER. PO SCH ×2 (08:29→22:57)
[2019-05-08] MEDS: POTASSIUM CHLORIDE 30 MEQ in IV NORMAL SALINE 1000ML BAG 1,000 ML IV SCH (08:30)
[2019-05-08] MEDS: PANTOPRAZOLE IV PUSH 40 MG VIAL. IVP SCH (08:44)
[2019-05-08] MEDS: amLODIPine BESYLATE 10 MG TABLET PO SCH (09:00)
--- NOTE | 2019-05-08 09:17 | NUR ---
SW following pt for dc planning. Chart reviewed. Pt lives at home with alone and does not have PT/OT needs. SW will be available as needed.
--- NOTE | 2019-05-08 09:28 | PDOC ---
PROGRESS NOTES Subjective Subjective no more rectal bleed Objective Objective Vital Signs Date Time Temp Pulse Resp B/P (MAP) Pulse Ox O2 Delivery O2 Flow Rate FiO2 05/08/19 07:55 98.4 75 18 101/51 (68) 97 Room Air 98.4 Intake and Output 05/08/19 07:00 Intake Total 200 ml Output Total 450 ml Balance -250 ml Intake Oral 200 ml Output Urine Total 200 ml Urine/Stool Mix 250 ml # Voids 3 Physical Exam Abdomen: Soft Heart: Normal S1, Normal S2 Extremities: No cyanosis General: Oriented X3 HEENT: Atraumatic Lungs: Clear to auscultation MUSCULOSKELETAL: No deformity Neck: No JVD Neuro: Normal speech Psych/Mental Status: Mental status NL Skin: No breakdown Diagnosis Problem List Problems Medical Problems: (1) Syncope Status: Acute Assessment Assessment Problems Medical Problems: (1) Syncope Status: Acute FINAL IMPRESSION: 1. Rectal bleed, secondary to probably diverticulosis. 2. Hypertension. 3. Hyperlipidemia. 4. Vestibular neuronitis. 5. Hypokalemia. PLAN: hb 8.3 low. pot 2.9 low replace GI bleeding scan neg. advance diet. ?home tomorrow. .At this time, was admitted to the hospital. Serial hemoglobin, type and crossed, and GI is consulted. GI bleeding scan. Hold aspirin and hopefully is self-limited and should able to control the bleeding. I discussed other surgical options, arterial embolization and sigmoid colon resection, if continues to have bleeding. Plan Plan of Care Problems Medical Problems: (1) Syncope Status: Acute Comment Review of Relevant I have reviewed the following items billie (where applicable) has been applied. Labs Laboratory Tests Test 05/07/19 10:40 05/07/19 11:30 05/08/19 05:06 Hemoglobin 9.4 g/dL (12.0-15.5) 8.2 g/dL (12.0-15.5) Hematocrit 28.8 % (36.0-47.0) 25.3 % (36.0-47.0) Mean Corpuscular Hemoglobin Concent 33 g/dL (31-37) 33 g/dL (31-37) Urine Collection Type Unknown Urine Color Yellow Urine Clarity Clear Urine pH 5.5 Urine Specific Serena 1.015 Urine Protein Negative mg/dL (NEG-TRACE) Urine Glucose (UA) Negative mg/dL (NEG) Urine Ketones (Stick) Negative mg/dL (NEG) Urine Blood Negative (NEG) Urine Nitrite Negative (NEG) Urine Bilirubin Negative (NEG) Urine Urobilinogen Dipstick 0.2 mg/dL (0.2 mg/dL) Urine Leukocyte Esterase Small (NEG) Urine RBC Rare /HPF (0-2) Urine WBC 1-4 /HPF (0-4) Urine Squamous Epithelial Cells Occ /LPF Urine Bacteria 0 /HPF (0-FEW) Urine Hyaline Casts Occasional /HPF Urine Mucus Mod /LPF White Blood Count 6.3 x10^3/uL (4.0-11.0) Red Blood Count 3.11 x10^6/uL (3.50-5.40) Mean Corpuscular Volume 82 fL (79-100) Mean Corpuscular Hemoglobin 27 pg (25-35) Red Cell Distribution Width 15.4 % (11.5-14.5) Platelet Count 223 x10^3/uL (140-400) Neutrophils (%) (Auto) 65 % (31-73) Lymphocytes (%) (Auto) 24 % (24-48) Monocytes (%) (Auto) 8 % (0-9) Eosinophils (%) (Auto) 2 % (0-3) Basophils (%) (Auto) 0 % (0-3) Neutrophils # (Auto) 4.1 x10^3/uL (1.8-7.7) Lymphocytes # (Auto) 1.5 x10^3/uL (1.0-4.8) Monocytes # (Auto) 0.5 x10^3/uL (0.0-1.1) Eosinophils # (Auto) 0.2 x10^3/uL (0.0-0.7) Basophils # (Auto) 0.0 x10^3/uL (0.0-0.2) Sodium Level 149 mmol/L (136-145) Potassium Level 2.7 mmol/L (3.5-5.1) Chloride Level 112 mmol/L (98-107) Carbon Dioxide Level 27 mmol/L (21-32) Anion Gap 10 (6-14) Blood Urea Nitrogen 16 mg/dL (7-20) Creatinine 0.9 mg/dL (0.6-1.0) Estimated GFR (Cockcroft-Gault) 74.3 Glucose Level 88 mg/dL (70-99) Calcium Level 8.3 mg/dL (8.5-10.1) Medications Current Medications Amlodipine Besylate (Norvasc) 10 mg DAILY PO Last administered on 05/07/19 16:20; Start 05/07/19 at 13:00 Atorvastatin Calcium (Lipitor) 5 mg QHS PO Last administered on 05/07/19 21:33; Start 05/07/19 at 21:00 Heparin Sodium (Porcine) (HEPARIN for NUC MED) 100 unit 1X ONCE IV ; Start 05/07/19 at 10:00; Stop 05/07/19 at 10:02; Status DC Hydralazine HCl (Apresoline) 50 mg TID PO Last administered on 05/07/19 21:33; Start 05/07/19 at 13:00 Pantoprazole Sodium (PROTONIX VIAL for IV PUSH) 40 mg DAILYAC IVP Last administered on 05/08/19at 08:44; Start 05/07/19 at 09:30 Potassium Chloride 30 meq/ Sodium Chloride 1,015 ml @ 75 mls/hr [id number] IV Last administered on 05/08/19at 08:30; Start 05/08/19 at 07:00 Potassium Chloride (Klor-Con) 20 meq 1X ONCE PO Last administered on 05/08/19 08:28; Start 05/08/19 at 06:45; Stop 05/08/19 at 06:46; Status DC Potassium Chloride (Klor-Con) 20 meq 1X ONCE PO Last administered on 05/08/19 08:28; Start 05/08/19 at 08:30; Stop 05/08/19 at 08:31; Status DC Potassium Chloride (Klor-Con) 20 meq BID PO Last administered on 05/08/19at 08:29; Start 05/08/19 at 09:00 Vitals/I & O Vital Sign - Last 24 Hours 05/07/19 05/07/19 05/07/19 05/07/19 11:00 15:00 15:00 16:19 Temp 98.3 98.1 98.3 98.3 98.1 98.3 Pulse 72 77 72 Resp 16 12 B/P (MAP) 118/72 (87) 117/36 (63) 128/63 (84) 128/63 Pulse Ox 97 98 97 O2 Delivery Room Air Room Air Room Air 05/07/19 05/07/19 05/07/19 05/07/19 16:20 19:25 20:00 21:33 Temp 98.2 98.2 Pulse 84 Resp 16 B/P (MAP) 128/63 112/48 (69) 112/48 Pulse Ox 96 O2 Delivery Room Air Room Air 05/07/19 05/08/19 05/08/19 23:00 03:55 07:55 Temp 98.4 98.3 98.4 98.4 98.3 98.4 Pulse 82 87 75 Resp 16 16 18 B/P (MAP) 103/46 (65) 106/49 (68) 101/51 (68) Pulse Ox 95 95 97 O2 Delivery Room Air Room Air Room Air Intake and Output 05/07/19 05/07/19 05/08/19 15:00 23:00 07:00 Intake Total 0 ml 200 ml Output Total 450 ml Balance -450 ml 200 ml JEANNIE RAMÍREZ MD May 08, 2019 09:28
--- NOTE | 2019-05-08 11:11 | PDOC ---
Subjective: Subjective: Last saw blood yesterday afternoon, feels better, would like to eat more than ice chips and one serving of jello she got last night. Objective: Vital Signs: Vital Signs Date Time Temp Pulse Resp B/P (MAP) Pulse Ox O2 Delivery O2 Flow Rate FiO2 05/08/19 09:00 75 101/51 05/08/19 07:55 98.4 18 97 Room Air 98.4 Labs: Laboratory Tests Test 05/07/19 11:30 05/08/19 05:06 Urine Collection Type Unknown Urine Color Yellow Urine Clarity Clear Urine pH 5.5 Urine Specific [place] 1.015 Urine Protein Negative mg/dL Urine Glucose (UA) Negative mg/dL Urine Ketones (Stick) Negative mg/dL Urine Blood Negative Urine Nitrite Negative Urine Bilirubin Negative Urine Urobilinogen Dipstick 0.2 mg/dL Urine Leukocyte Esterase Small Urine RBC Rare /HPF Urine WBC 1-4 /HPF Urine Squamous Epithelial Cells Occ /LPF Urine Bacteria 0 /HPF Urine Hyaline Casts Occasional /HPF Urine Mucus Mod /LPF White Blood Count 6.3 x10^3/uL Red Blood Count 3.11 x10^6/uL Hemoglobin 8.2 g/dL Hematocrit 25.3 % Mean Corpuscular Volume 82 fL Mean Corpuscular Hemoglobin 27 pg Mean Corpuscular Hemoglobin Concent 33 g/dL Red Cell Distribution Width 15.4 % Platelet Count 223 x10^3/uL Neutrophils (%) (Auto) 65 % Lymphocytes (%) (Auto) 24 % Monocytes (%) (Auto) 8 % Eosinophils (%) (Auto) 2 % Basophils (%) (Auto) 0 % Neutrophils # (Auto) 4.1 x10^3/uL Lymphocytes # (Auto) 1.5 x10^3/uL Monocytes # (Auto) 0.5 x10^3/uL Eosinophils # (Auto) 0.2 x10^3/uL Basophils # (Auto) 0.0 x10^3/uL Sodium Level 149 mmol/L Potassium Level 2.7 mmol/L Chloride Level 112 mmol/L Carbon Dioxide Level 27 mmol/L Anion Gap 10 Blood Urea Nitrogen 16 mg/dL Creatinine 0.9 mg/dL Estimated GFR (Cockcroft-Gault) 74.3 Glucose Level 88 mg/dL Calcium Level 8.3 mg/dL Imaging: Bleed Scan IMPRESSION: No evidence of acute GI bleed. PE: GEN: NAD LUNGS: CTAB HEART: RRR ABD: NABS, S/ND/NT NEURO/PSYCH: A & O 3 A/P: Hematochezia - suspect diverticular bleed, bleeding scan negative Hypokalemia - per primary Anemia - Hgb drifting -- Looks like has plans for full liquid diet. RONAN COPE May 08, 2019 11:11
[2019-05-08 11:59] VITALS: BP 115/60
[2019-05-08 15:00] VITALS: BP 104/48
[2019-05-08 19:45] VITALS: BP 109/46
[2019-05-08] MEDS: ATORVASTATIN CALCIUM 10 MG TABLET. PO SCH (22:57)
[2019-05-08 23:27] VITALS: BP 113/48
[2019-05-09] MEDS: POTASSIUM CHLORIDE 30 MEQ in IV NORMAL SALINE 1000ML BAG 1,000 ML IV SCH (00:08)
[2019-05-09 03:22] VITALS: BP 117/48
[2019-05-09 05:45] LABS: BASO # 0.1 x10^3/uL (0.0-0.2); BASO % 1 % (0-3); EOS # 0.3 x10^3/uL (0.0-0.7); EOS % 5 % (0-3); HEMATOCRIT 24.1 % (36.0-47.0); HEMOGLOBIN 7.8 g/dL (12.0-15.5); LYMPH # 1.8 x10^3/uL (1.0-4.8); LYMPH % 28 % (24-48); MEAN CORPUSCULAR HEMOGLOBIN 26 pg (25-35); MEAN CORPUSCULAR HGB CONC 32 g/dL (31-37); MEAN CORPUSCULAR VOLUME 82 fL (79-100); MONO # 0.6 x10^3/uL (0.0-1.1); MONO % 9 % (0-9); NEUT # 3.6 x10^3/uL (1.8-7.7); NEUT % 56 % (31-73); PLATELET COUNT 226 x10^3/uL (140-400); RED BLOOD COUNT 2.95 x10^6/uL (3.50-5.40); RED CELL DISTRIBUTION WIDTH 15.6 % (11.5-14.5); WHITE BLOOD COUNT 6.4 x10^3/uL (4.0-11.0)
[2019-05-09 06:03] LABS: CREATININE 0.8 mg/dL (0.6-1.0); GFR 85.1; POTASSIUM 3.8 mmol/L (3.5-5.1)
[2019-05-09] MEDS ORDERED: PANTOPRAZOLE 40 MG TABLET.DR. PO SCH (07:30)
[2019-05-09 07:55] VITALS: BP 130/46
[2019-05-09] MEDS: POTASSIUM CHLORIDE 20 MEQ TABLET.ER. PO SCH (09:59)
[2019-05-09] MEDS: amLODIPine BESYLATE 10 MG TABLET PO SCH (09:59)
--- NOTE | 2019-05-09 10:03 | PDOC ---
PROGRESS NOTES Subjective Subjective no more rectal bleed Objective Objective Vital Signs Date Time Temp Pulse Resp B/P (MAP) Pulse Ox O2 Delivery O2 Flow Rate FiO2 05/09/19 09:59 80 130/46 05/09/19 07:55 98.4 16 98 Room Air 98.4 Intake and Output 05/09/19 06:59 Intake Total 2014 ml Balance 2014 ml Intake Oral 1000 ml IV Total 1015 ml # Voids 3 # Bowel Movements 1 Physical Exam Abdomen: Soft Heart: Normal S1, Normal S2 Extremities: No cyanosis General: Oriented X3 HEENT: Atraumatic Lungs: Clear to auscultation MUSCULOSKELETAL: No deformity Neck: No JVD Neuro: Normal speech Psych/Mental Status: Mental status NL Skin: No breakdown Diagnosis Problem List Problems Medical Problems: (1) Syncope Status: Acute Assessment Assessment Problems Medical Problems: (1) Syncope Status: Acute FINAL IMPRESSION: 1. Rectal bleed, secondary to probably diverticulosis. 2. Hypertension. 3. Hyperlipidemia. 4. Vestibular neuronitis. 5. Hypokalemia. PLAN:d/c home today hb 7.8 low.due to bleed pot3.8 low replace GI bleeding scan neg. advance diet to GI soft diet. f/u with gi out pt . Plan Plan of Care Problems Medical Problems: (1) Syncope Status: Acute Comment Review of Relevant I have reviewed the following items billie (where applicable) has been applied. Labs Laboratory Tests Test 05/08/19 14:20 05/09/19 04:23 Potassium Level 3.3 mmol/L (3.5-5.1) 3.8 mmol/L (3.5-5.1) White Blood Count 6.4 x10^3/uL (4.0-11.0) Red Blood Count 2.95 x10^6/uL (3.50-5.40) Hemoglobin 7.8 g/dL (12.0-15.5) Hematocrit 24.1 % (36.0-47.0) Mean Corpuscular Volume 82 fL (79-100) Mean Corpuscular Hemoglobin 26 pg (25-35) Mean Corpuscular Hemoglobin Concent 32 g/dL (31-37) Red Cell Distribution Width 15.6 % (11.5-14.5) Platelet Count 226 x10^3/uL (140-400) Neutrophils (%) (Auto) 56 % (31-73) Lymphocytes (%) (Auto) 28 % (24-48) Monocytes (%) (Auto) 9 % (0-9) Eosinophils (%) (Auto) 5 % (0-3) Basophils (%) (Auto) 1 % (0-3) Neutrophils # (Auto) 3.6 x10^3/uL (1.8-7.7) Lymphocytes # (Auto) 1.8 x10^3/uL (1.0-4.8) Monocytes # (Auto) 0.6 x10^3/uL (0.0-1.1) Eosinophils # (Auto) 0.3 x10^3/uL (0.0-0.7) Basophils # (Auto) 0.1 x10^3/uL (0.0-0.2) Sodium Level 146 mmol/L (136-145) Chloride Level 113 mmol/L (98-107) Carbon Dioxide Level 26 mmol/L (21-32) Anion Gap 7 (6-14) Blood Urea Nitrogen 11 mg/dL (7-20) Creatinine 0.8 mg/dL (0.6-1.0) Estimated GFR (Cockcroft-Gault) 85.1 Glucose Level 86 mg/dL (70-99) Calcium Level 8.0 mg/dL (8.5-10.1) Microbiology 05/07/19 Urine Culture - Final, Complete 05/07/19 Urine Culture Result 1 (JOSEMANUEL) - Final, Complete Medications Current Medications Pantoprazole Sodium (Protonix) 40 mg DAILYAC PO Last administered on 05/09/19at 09:59; Start 05/09/19 at 07:30 Vitals/I & O Vital Sign - Last 24 Hours 05/08/19 05/08/19 05/08/19 05/08/19 11:59 15:00 15:03 19:45 Temp 98.5 98.6 99.0 98.5 98.6 99.0 Pulse 77 78 77 84 Resp 18 18 18 B/P (MAP) 115/60 (78) 104/48 (66) 115/60 109/46 (67) Pulse Ox 98 97 95 O2 Delivery Room Air Room Air Room Air 05/08/19 05/08/19 05/08/19 05/09/19 20:00 22:58 23:27 03:22 Temp 99.0 98.4 99.0 98.4 Pulse 83 81 76 Resp 18 18 B/P (MAP) 113/48 113/48 (69) 117/48 (71) Pulse Ox 97 97 O2 Delivery Room Air Room Air Room Air 05/09/19 05/09/19 05/09/19 07:55 09:58 09:59 Temp 98.4 98.4 Pulse 80 80 80 Resp 16 B/P (MAP) 130/46 (74) 130/46 130/46 Pulse Ox 98 O2 Delivery Room Air Intake and Output 05/08/19 05/08/19 05/09/19 14:59 22:59 06:59 Intake Total 200 ml 500 ml 1315 ml Balance 200 ml 500 ml 1315 ml JEANNIE RAMÍREZ MD May 09, 2019 10:03
[2019-05-09 11:00] VITALS: BP 117/51
--- NOTE | 2019-05-09 12:51 | PDOC ---
G I PROGRESS NOTE Subjective No complaints. Denies any bleeding. Tolerating diet. Objective Note tentative plans for discharge. Physical Exam Lungs clear. RRR Abdomen soft, not tender nor distended. Review of Relevant I have reviewed the following items billie (where applicable) has been applied. Labs Laboratory Tests Test 05/08/19 05:06 05/08/19 14:20 05/09/19 04:23 White Blood Count 6.3 x10^3/uL (4.0-11.0) 6.4 x10^3/uL (4.0-11.0) Red Blood Count 3.11 x10^6/uL (3.50-5.40) 2.95 x10^6/uL (3.50-5.40) Hemoglobin 8.2 g/dL (12.0-15.5) 7.8 g/dL (12.0-15.5) Hematocrit 25.3 % (36.0-47.0) 24.1 % (36.0-47.0) Mean Corpuscular Volume 82 fL (79-100) 82 fL (79-100) Mean Corpuscular Hemoglobin 27 pg (25-35) 26 pg (25-35) Mean Corpuscular Hemoglobin Concent 33 g/dL (31-37) 32 g/dL (31-37) Red Cell Distribution Width 15.4 % (11.5-14.5) 15.6 % (11.5-14.5) Platelet Count 223 x10^3/uL (140-400) 226 x10^3/uL (140-400) Neutrophils (%) (Auto) 65 % (31-73) 56 % (31-73) Lymphocytes (%) (Auto) 24 % (24-48) 28 % (24-48) Monocytes (%) (Auto) 8 % (0-9) 9 % (0-9) Eosinophils (%) (Auto) 2 % (0-3) 5 % (0-3) Basophils (%) (Auto) 0 % (0-3) 1 % (0-3) Neutrophils # (Auto) 4.1 x10^3/uL (1.8-7.7) 3.6 x10^3/uL (1.8-7.7) Lymphocytes # (Auto) 1.5 x10^3/uL (1.0-4.8) 1.8 x10^3/uL (1.0-4.8) Monocytes # (Auto) 0.5 x10^3/uL (0.0-1.1) 0.6 x10^3/uL (0.0-1.1) Eosinophils # (Auto) 0.2 x10^3/uL (0.0-0.7) 0.3 x10^3/uL (0.0-0.7) Basophils # (Auto) 0.0 x10^3/uL (0.0-0.2) 0.1 x10^3/uL (0.0-0.2) Sodium Level 149 mmol/L (136-145) 146 mmol/L (136-145) Potassium Level 2.7 mmol/L (3.5-5.1) 3.3 mmol/L (3.5-5.1) 3.8 mmol/L (3.5-5.1) Chloride Level 112 mmol/L (98-107) 113 mmol/L (98-107) Carbon Dioxide Level 27 mmol/L (21-32) 26 mmol/L (21-32) Anion Gap 10 (6-14) 7 (6-14) Blood Urea Nitrogen 16 mg/dL (7-20) 11 mg/dL (7-20) Creatinine 0.9 mg/dL (0.6-1.0) 0.8 mg/dL (0.6-1.0) Estimated GFR (Cockcroft-Gault) 74.3 85.1 Glucose Level 88 mg/dL (70-99) 86 mg/dL (70-99) Calcium Level 8.3 mg/dL (8.5-10.1) 8.0 mg/dL (8.5-10.1) Laboratory Tests Test 05/08/19 14:20 05/09/19 04:23 Potassium Level 3.3 mmol/L (3.5-5.1) 3.8 mmol/L (3.5-5.1) White Blood Count 6.4 x10^3/uL (4.0-11.0) Red Blood Count 2.95 x10^6/uL (3.50-5.40) Hemoglobin 7.8 g/dL (12.0-15.5) Hematocrit 24.1 % (36.0-47.0) Mean Corpuscular Volume 82 fL (79-100) Mean Corpuscular Hemoglobin 26 pg (25-35) Mean Corpuscular Hemoglobin Concent 32 g/dL (31-37) Red Cell Distribution Width 15.6 % (11.5-14.5) Platelet Count 226 x10^3/uL (140-400) Neutrophils (%) (Auto) 56 % (31-73) Lymphocytes (%) (Auto) 28 % (24-48) Monocytes (%) (Auto) 9 % (0-9) Eosinophils (%) (Auto) 5 % (0-3) Basophils (%) (Auto) 1 % (0-3) Neutrophils # (Auto) 3.6 x10^3/uL (1.8-7.7) Lymphocytes # (Auto) 1.8 x10^3/uL (1.0-4.8) Monocytes # (Auto) 0.6 x10^3/uL (0.0-1.1) Eosinophils # (Auto) 0.3 x10^3/uL (0.0-0.7) Basophils # (Auto) 0.1 x10^3/uL (0.0-0.2) Sodium Level 146 mmol/L (136-145) Chloride Level 113 mmol/L (98-107) Carbon Dioxide Level 26 mmol/L (21-32) Anion Gap 7 (6-14) Blood Urea Nitrogen 11 mg/dL (7-20) Creatinine 0.8 mg/dL (0.6-1.0) Estimated GFR (Cockcroft-Gault) 85.1 Glucose Level 86 mg/dL (70-99) Calcium Level 8.0 mg/dL (8.5-10.1) Microbiology 05/07/19 Urine Culture - Final, Complete 05/07/19 Urine Culture Result 1 (JOSEMANUEL) - Final, Complete Vitals/I & O Vital Sign - Last 24 Hours 05/08/19 05/08/19 05/08/19 05/08/19 15:00 15:03 19:45 20:00 Temp 98.6 99.0 98.6 99.0 Pulse 78 77 84 Resp 18 18 B/P (MAP) 104/48 (66) 115/60 109/46 (67) Pulse Ox 97 95 O2 Delivery Room Air Room Air Room Air 05/08/19 05/08/19 05/09/19 05/09/19 22:58 23:27 03:22 07:50 Temp 99.0 98.4 99.0 98.4 Pulse 83 81 76 Resp 18 18 B/P (MAP) 113/48 113/48 (69) 117/48 (71) Pulse Ox 97 97 O2 Delivery Room Air Room Air Room Air 05/09/19 05/09/19 05/09/19 07:55 09:58 09:59 Temp 98.4 98.4 Pulse 80 80 80 Resp 16 B/P (MAP) 130/46 (74) 130/46 130/46 Pulse Ox 98 O2 Delivery Room Air Intake and Output 05/08/19 05/08/19 05/09/19 14:59 22:59 06:59 Intake Total 200 ml 500 ml 1315 ml Balance 200 ml 500 ml 1315 ml Problem List Problems Medical Problems: (1) Syncope Status: Acute Assessment Likely diverticular bleed, seems resolved. Plan of Care Note OK with me to consider discharge; can f/u with me if needed. Counseled not to take ASA for a week. JEOVANY HERNANDEZ MD May 09, 2019 12:51
--- NOTE | 2019-05-09 14:40 | NUR ---
Discharge instructions given to patient and family member regarding follow up appointments. Contact information given to pt. Education over rectal bleeding and hypertension reviewed. Pt verbalizes understanding.
--- NOTE | 2019-05-12 22:08 | PDOC ---
Provider Note Provider Note Discharge summary dictated.#[id number]. JEANNIE RAMÍREZ MD May 12, 2019 22:08
--- NOTE | 2019-05-12 22:23 | DS ---
DATE OF DISCHARGE: 05/09/2019 REASON FOR ADMISSION TO THE HOSPITAL: Diverticular bleed. CONSULTATION: Dr. Boles. PROCEDURES DONE: GI bleeding scan. HOSPITAL COURSE: The patient is a 73-year-old female, complains of bleeding per rectum getting progressively worse and the patient had a colonoscopy 5-6 years ago showed diverticulosis. The patient's hemoglobin was 12; it went down progressively to 7.8. INR was 0.9. Electrolytes were potassium was low at 2.7, which was replaced. The patient was seen by GI and had a bleeding scan did not show acute bleeding and the patient eventually stopped bleeding. Hemoglobin remained stable and she was discharged. Plan is to have colonoscopy done in a couple of weeks. FINAL DIAGNOSES: 1. Acute lower gastrointestinal bleed secondary to diverticular bleed. Hemoglobin dropped significantly from 12 to 8.3,Pt did not require any transfusion. 2. History of diverticulosis. 3. Hypertension. 4. Hypokalemia, corrected. DISPOSITION: Home. The patient is scheduled to follow with GI for colonoscopy in 2-4 weeks. She is recommended not to take any aspirin or nonsteroidals. JEANNIE RAMÍREZ MD DR: LUIS/stephanie JOB#: [id number] / [id number] SUZI Rodriguez
== END 2019-05-09 15:00 | disposition home or self-care (01) | DRG 378 ==
LOC: ER 19:08 → 6 SOUTH 20:55
PROVIDERS: ADMIT Internal Medicine; ATTEND Internal Medicine
DX: K57.91 Diverticulosis of intestine, part unspecified, without perforation or abscess with bleeding (principal); R71.0 Precipitous drop in hematocrit; I10 Essential (primary) hypertension; H81.20 Vestibular neuronitis, unspecified ear; E78.5 Hyperlipidemia, unspecified; D64.9 Anemia, unspecified; E87.6 Hypokalemia; E89.0 Postprocedural hypothyroidism; E78.00 Pure hypercholesterolemia, unspecified; Z80.0 Family history of malignant neoplasm of digestive organs; Z80.3 Family history of malignant neoplasm of breast; Z82.49 Family history of ischemic heart disease and other diseases of the circulatory system
CPT/HCPCS: 36415; 78278; 80048; 80053; 81001; 82274; 84132; 85014; 85018; 85025; 85610; 85730; 86850; 86900; 86901; 87086; 96374; A9560; C9113; J3480; J7030; 99285-25; G0378

== ENCOUNTER → 2019-07-16 | Outpatient (CLI) | payer OTHER ==
[~2019-07-16] MED LIST changes: +ASPI-630 PO; +MECL-75 PO; -MECL25TA3 PO
--- NOTE | 2019-07-16 13:38 | RAD ---
DATE: 07/16/2019 EXAM: MAMMO DELISA DIAG LT HISTORY: Abnormal mammogram COMPARISON: 01/08/2019 screen mammogram, 01/22/2019 left unilateral diagnostic mammogram This study was interpreted with the benefit of Computerized Aided Detection (CAD). Breast Density: SCATTERED The breast parenchyma shows scattered fibroglandular densities. Breast parenchyma level B. FINDINGS: Benign-appearing calcifications. No dominant mass or distortion in the interval. No suspicious left breast asymmetries. IMPRESSION: Unremarkable BI-RADS CATEGORY: 1 NEGATIVE RECOMMENDED FOLLOW-UP: 12M 12 MONTH FOLLOW-UP PQRS compliance statement: Patient information was entered into a reminder system with a target due date for the next mammogram. Mammography is a sensitive method for finding small breast cancers, but it does not detect them all and is not a substitute for careful clinical examination. A negative mammogram does not negate a clinically suspicious finding and should not result in delay in biopsying a clinically suspicious abnormality. "Our facility is accredited by the [employer] Mammography Program."
== END | disposition home or self-care (01) ==
LOC: MAMMO 12:57
PROVIDERS: ATTEND Family Medicine
DX: N64.89 Other specified disorders of breast (principal)
CPT/HCPCS: 77065; G0279; 77061

== ENCOUNTER 2020-05-17 21:29 | Emergency (ER) | payer OTHER ==
[~2020-05-17] VITALS: Ht 162.6 cm; Wt 74.0 kg
[~2020-05-17 21:29] MED LIST changes: +AMLO-187 PO; -AMLO10TA8 PO
[2020-05-17] MEDS ORDERED: IV NORMAL SALINE 1000ML BAG 1,000 ML IV SCH (23:45)
--- NOTE | 2020-05-18 00:21 | RAD ---
STUDY: CT head without contrast INDICATION: Dizziness. COMPARISON: 08/22/2016 TECHNIQUE: Axial CT imaging through the head without the use of intravenous contrast. Sagittal and coronal reformats were obtained. One or more of the following individualized dose reduction techniques were utilized for this examination: 1. Automated exposure control 2. Adjustment of the mA and/or kV according to patient size 3. Use of iterative reconstruction technique. FINDINGS: No acute intracranial hemorrhage. No localized mass effect, midline shift or hydrocephalus. Multifocal hypoattenuation involving the bihemispheric subcortical/periventricular white matter was present previously. Intracranial atherosclerotic calcifications. Intact calvarium. IMPRESSION: 1. No acute intracranial abnormality by CT. 2. Redemonstrated white matter findings which are nonspecific but most frequently on account of chronic microvascular ischemic change. If there is concern for an acute ischemic event MRI would be more sensitive. Electronically signed by: FILOMENA SPARKS MD (05/18/2020 12:18 AM) [id number]
[2020-05-18 00:28] LABS: BASO # 0.1 x10^3/uL (0.0-0.2); BASO % 1 % (0-3); EOS # 0.1 x10^3/uL (0.0-0.7); EOS % 1 % (0-3); HEMATOCRIT 37.1 % (36.0-47.0); HEMOGLOBIN 12.2 g/dL (12.0-15.5); LYMPH # 1.7 x10^3/uL (1.0-4.8); LYMPH % 17 % (24-48); MEAN CORPUSCULAR HEMOGLOBIN 26 pg (25-35); MEAN CORPUSCULAR HGB CONC 33 g/dL (31-37); MEAN CORPUSCULAR VOLUME 80 fL (79-100); MONO # 0.8 x10^3/uL (0.0-1.1); MONO % 8 % (0-9); NEUT # 7.4 x10^3/uL (1.8-7.7); NEUT % 74 % (31-73); PLATELET COUNT 261 x10^3/uL (140-400); RED BLOOD COUNT 4.63 x10^6/uL (3.50-5.40); RED CELL DISTRIBUTION WIDTH 14.8 % (11.5-14.5)
[2020-05-18 00:37] LABS: CALCIUM 9.6 mg/dL (8.5-10.1); CREATININE 1.1 mg/dL (0.6-1.0); GFR 58.7; POTASSIUM 3.5 mmol/L (3.5-5.1)
[2020-05-18 00:42] LABS: MAGNESIUM 2.1 mg/dL (1.8-2.4); TOTAL BILIRUBIN 0.2 mg/dL (0.2-1.0); TOTAL PROTEIN 8.1 g/dL (6.4-8.2)
[2020-05-18] MEDS ORDERED: KETOROLAC 15 MG/ML VIAL. IVP ONE (02:00)
[2020-05-18] MEDS ORDERED: IV NORMAL SALINE 1000ML BAG 1,000 ML IV ONE (02:00)
[2020-05-18] MEDS ORDERED: diphenhydrAMINE 50 MG/ML VIAL IVP ONE (02:00)
[2020-05-18] MEDS ORDERED: PROCHLORPERAZINE 10 MG/2 ML VIAL. IV ONE (02:00)
[2020-05-18] MEDS ORDERED: MECLIZINE HCL 12.5 MG TABLET. PO ONE (02:00)
[2020-05-18] MEDS ORDERED: DEXAMETHASONE SOD PHOS 20 MG/5 ML VIAL. IV ONE (02:00)
--- NOTE | 2020-05-18 04:20 | PHYS DOC ---
Past Medical History Past Medical History: High Cholesterol, Hypertension, Hypothyroid Additional Past Medical Histor: VERTIGO Past Surgical History: No Surgical History Additional Past Surgical Histo: THYROID Smoking Status: Unknown if ever smoked Alcohol Use: None Drug Use: None General Adult EDM: Chief Complaint: DIZZY/LIGHT HEADED HPI: HPI: 74-year-old female past medical history significant for hypertension, hyperlipidemia and history of peripheral vertigo on meclizine, presents the ED with complaints of sudden onset palpitations that lasted for approximately 30 minutes with associated dizziness, described as the room spinning. Patient states dizziness has significantly improved but not fully resolved, worsens with positions but is currently experiencing a frontal headache with photophobia. Denies any head trauma. Is not on any anticoagulants. Takes valium but cannot recall what type of vertigo she has been diagnosed with. Denies any tinnitus or hearing loss. On no AC. Review of Systems: Review of Systems: Constitutional: Denies fever or chills. [] Eyes: Denies change in visual acuity. [] HENT: Denies nasal congestion or sore throat or earache Respiratory: Denies cough or shortness of breath. [] Cardiovascular: Denies chest pain or edema or syncope GI: Denies abdominal pain, nausea, vomiting, bloody stools or diarrhea. [] : Denies dysuria. [] Musculoskeletal: Denies back pain or joint pain. [] Integument: Denies rash. [] Neurologic: Denies headache, focal weakness or sensory changes. [] Endocrine: Denies polyuria or polydipsia. [] Lymphatic: Denies swollen glands. [] Psychiatric: Denies depression or anxiety. [] Heart Score: Risk Factors: Risk Factors: DM, Current or recent (<one month) smoker, HTN, HLP, family history of CAD, obesity. Risk Scores: Score 0 - 3: 2.5% MACE over next 6 weeks - Discharge Home Score 4 - 6: 20.3% MACE over next 6 weeks - Admit for Clinical Observation Score 7 - 10: 72.7% MACE over next 6 weeks - Early Invasive Strategies Current Medications: Current Medications Medications (Trade) Dose Ordered Sig/Geetha Start Time Stop Time Status Last Admin Dose Admin Dexamethasone Sodium Phosphate (Decadron) 10 mg 1X ONCE 05/18/20 02:00 05/18/20 02:01 DC 05/18/20 02:35 10 MG Diphenhydramine HCl (Benadryl) 25 mg 1X ONCE 05/18/20 02:00 05/18/20 02:01 DC Ketorolac Tromethamine (Toradol 15mg Vial) 15 mg 1X ONCE 05/18/20 02:00 05/18/20 02:01 DC Meclizine HCl (Antivert) 25 mg 1X ONCE 05/18/20 02:00 05/18/20 02:01 DC 05/18/20 02:26 25 MG Prochlorperazine Edisylate (Compazine) 10 mg 1X ONCE 05/18/20 02:00 05/18/20 02:01 DC 05/18/20 02:27 10 MG Sodium Chloride 1,000 ml @ 1,000 mls/hr 1X ONCE 05/18/20 02:00 05/18/20 02:59 DC 05/18/20 02:24 1,000 MLS/HR Allergies: Allergies: Allergies Coded Allergies Type Severity Reaction Last Updated Verified No Known Drug Allergies 11/27/15 No Physical Exam: PE: Constitutional: Well developed, well nourished, no acute distress, non-toxic appearance. [] HENT: Normocephalic, atraumatic, bilateral external ears normal, oropharynx moist, no oral exudates, normal TMs with no erythema or effusions Eyes: PERRLA, EOMI, conjunctiva normal, no discharge. [] Neck: Normal range of motion, no tenderness, supple, no stridor. [] Cardiovascular:Heart rate regular rhythm, no murmur [] Lungs & Thorax: Bilateral breath sounds clear to auscultation [] Abdomen: Bowel sounds normal, soft, no tenderness, no masses, no pulsatile masses. [] Skin: Warm, dry, no erythema, no rash. [] Back: No tenderness, no CVA tenderness. [] Extremities: No tenderness, no cyanosis, no clubbing, ROM intact, no edema. [] Neurologic: Alert and oriented X 3, normal motor function, normal sensory function, no focal deficits noted, FNF/DENIZ normal, no ataxia, CN2-12 intact, HINTS exam performed with active persistent vertigo. Exam negative for central pathology. Pt with no vertical nystagmus (horizontal nystagmus and lack of nysta gmus consistent with peripheral vertigo), normal corrective saccade with head impulse test and no skew deviation. Psychologic: Affect normal, judgement normal, mood normal. [] Current Patient Data: Labs: Laboratory Tests Test 05/18/20 00:15 White Blood Count 10.0 x10^3/uL (4.0-11.0) Red Blood Count 4.63 x10^6/uL (3.50-5.40) Hemoglobin 12.2 g/dL (12.0-15.5) Hematocrit 37.1 % (36.0-47.0) Mean Corpuscular Volume 80 fL (79-100) Mean Corpuscular Hemoglobin 26 pg (25-35) Mean Corpuscular Hemoglobin Concent 33 g/dL (31-37) Red Cell Distribution Width 14.8 % (11.5-14.5) H Platelet Count 261 x10^3/uL (140-400) Neutrophils (%) (Auto) 74 % (31-73) H Lymphocytes (%) (Auto) 17 % (24-48) L Monocytes (%) (Auto) 8 % (0-9) Eosinophils (%) (Auto) 1 % (0-3) Basophils (%) (Auto) 1 % (0-3) Neutrophils # (Auto) 7.4 x10^3/uL (1.8-7.7) Lymphocytes # (Auto) 1.7 x10^3/uL (1.0-4.8) Monocytes # (Auto) 0.8 x10^3/uL (0.0-1.1) Eosinophils # (Auto) 0.1 x10^3/uL (0.0-0.7) Basophils # (Auto) 0.1 x10^3/uL (0.0-0.2) Sodium Level 142 mmol/L (136-145) Potassium Level 3.5 mmol/L (3.5-5.1) Chloride Level 102 mmol/L (98-107) Carbon Dioxide Level 26 mmol/L (21-32) Anion Gap 14 (6-14) Blood Urea Nitrogen 23 mg/dL (7-20) H Creatinine 1.1 mg/dL (0.6-1.0) H Estimated GFR (Cockcroft-Gault) 58.7 BUN/Creatinine Ratio 21 (6-20) H Glucose Level 106 mg/dL (70-99) H Calcium Level 9.6 mg/dL (8.5-10.1) Magnesium Level 2.1 mg/dL (1.8-2.4) Total Bilirubin 0.2 mg/dL (0.2-1.0) Aspartate Amino Transferase (AST) 23 U/L (15-37) Alanine Aminotransferase (ALT) 21 U/L (14-59) Alkaline Phosphatase 129 U/L (46-116) H Troponin I Quantitative < 0.017 ng/mL (0.000-0.055) VE-Hpz-J-Type Natriuretic Peptide 134 pg/mL (0-124) H Total Protein 8.1 g/dL (6.4-8.2) Albumin 4.0 g/dL (3.4-5.0) Albumin/Globulin Ratio 1.0 (1.0-1.7) Thyroid Stimulating Hormone (TSH) 0.452 uIU/mL (0.358-3.74) Laboratory Tests 05/18/20 00:15 Laboratory Tests 05/18/20 00:15 Vital Signs: Vital Signs Date Time Temp Pulse Resp B/P (MAP) Pulse Ox O2 Delivery O2 Flow Rate FiO2 05/18/20 01:18 78 20 97 05/17/20 21:39 97.9 149/65 (93) Room Air 97.9 EKG: EKG: Sinus 81 bpm, left axis deviation, normal intervals, no T wave inversions, no ST elevations or ST depressions Radiology/Procedures: Radiology/Procedures: IMAGING REPORT Signed PATIENT: CARLOS RODRIGUEZ ACCOUNT: [id number] : 1945 LOCATION: ER AGE: 74 SEX: F EXAM STATUS: REG ER ORD. PHYSICIAN: XOCHITL HSU DO REASON: dizzy PROCEDURE: CT HEAD WO CONTRAST STUDY: CT head without contrast INDICATION: Dizziness. COMPARISON: 08/22/2016 TECHNIQUE: Axial CT imaging through the head without the use of intravenous contrast. Sagittal and coronal reformats were obtained. One or more of the following individualized dose reduction techniques were utilized for this examination: 1. Automated exposure control 2. Adjustment of the mA and/or kV according to patient size 3. Use of iterative reconstruction technique. FINDINGS: No acute intracranial hemorrhage. No localized mass effect, midline shift or hydrocephalus. Multifocal hypoattenuation involving the bihemispheric subcortical/periventricular white matter was present previously. Intracranial atherosclerotic calcifications. Intact calvarium. IMPRESSION: 1. No acute intracranial abnormality by CT. 2. Redemonstrated white matter findings which are nonspecific but most frequently on account of chronic microvascular ischemic change. If there is concern for an acute ischemic event MRI would be more sensitive. Electronically signed by: FILOMENA SPARKS MD (05/18/2020 12:18 AM) [id number] DICTATED and SIGNED BY: FILOMENA SPARKS MD DATE: 05/18/2017 IMAGING REPORT Signed PATIENT: CARLOS RODRIGUEZ ACCOUNT: [id number] : 1945 LOCATION: ER AGE: 74 SEX: F EXAM STATUS: DEP ER ORD. PHYSICIAN: XOCHITL HSU DO REASON: dizzy PROCEDURE: PORTABLE CHEST 1V AP chest. HISTORY: Dizzy AP view was taken of the chest. Lungs are clear. Heart is normal in size. There is no pleural effusion. IMPRESSION: 1. No acute chest disease. Electronically signed by: Matias Petersen MD (05/18/2020 8:22 AM) [id number] DICTATED and SIGNED BY: MATIAS PETERSEN MD DATE: 05/18/20821 Course & Med Decision Making: Course & Med Decision Making Pertinent Labs and Imaging studies reviewed. (See chart for details) Patient treated for peripheral vertigo and headache with migraine cocktail. Patient reports headache and dizziness have resolved, no further episodes of palpitations, now with a steady gait. Strict ED return precautions were given for syncope, neurologic deficits, ataxia, chest pain or dyspnea. Encouraged urgent outpatient follow-up with PMD and neurology. Life-threatening processes were considered but are low suspicion at this time, given history and physical exam. Pt was educated on all prescription medications and adverse effects. All patient's questions were answered and pt was stable at time of discharge. Life/limb-threatening differential includes but is not limited to, cerebrovascular accident, cerebellar stroke, acute coronary syndrome, carbon monoxide poisoning or other toxidrome, arrhythmia, [place] syndrome, thyroid disease, infection, central and peripheral vertigo, intracranial hemorrhage, vertebrobasilar insufficiency, heat stroke, electrolyte disorder, rheumatologic or autoimmune disorder I spoken with the patient and her caregivers. I explained the patient's condition, diagnoses and treatment plan based on the information available to me at this time. I have answered the patient and her caregiver's questions and addressed any concerns. The patient and her caregivers have a good understanding of patient's diagnosis, condition and treatment plan as can be expected at this point. Vital signs have been stable. Patient's condition is stable and appropriate for discharge from the emergency department. Patient will pursue further outpatient evaluation with primary care physician or other designated or consulting physician as outlined in the discharge instructions. The patient and/or caregivers are agreeable to this plan of care and follow-up instructions have been explained in detail. The patient and/or caregivers have received these instructions in written form and have expressed an understanding of the discharge instructions. The patient and/or caregivers are aware that any significant change of condition or worsening of symptoms should prompt immediate return to this or the closest emergency department or call to 911. Hakeem Disclaimer: Hakeem Disclaimer: This electronic medical record was generated, in whole or in part, using a voice recognition dictation system. Departure Departure Impression: Primary Impression: Dizziness Additional Impressions: Vertigo Palpitations Headache Disposition: 01 DC HOME SELF CARE/HOMELESS Condition: STABLE Referrals: JEANNIE RAMÍREZ MD (PCP) Patient Instructions: Benign Positional Vertigo, Dizziness Additional Instructions: FOLLOW UP WITH NEUROLOGY: [facility] Address: [address] [place] [address] FOLLOW UP WITH ENT: Otolaryngology Address: [address] [place] [address], [address] [place] [address] players assistant [facility] [employer] [facility] Address: [facility] [address] [address] EMERGENCY DEPARTMENT GENERAL DISCHARGE INSTRUCTIONS Thank you for coming to [facility] Emergency Department (ED) today and trusting us with you care. We trust that you had a positive experience in our Emergency Department. If you wish to speak to the department management, you may call the Director at [phone]. YOUR FOLLOW UP INSTRUCTIONS ARE FOLLOWS: 1. Do you have a private Doctor? If you do not have a private doctor, please ask for a resource list of physicians or clinics that may be able to assist you with follow up care. 2. The Emergency Physicain has interpreted your x-rays. The X-Ray specialist will also review them. If there is a change in the findings, you will be notified in 48 hours when at all possible. 3. A lab test or culture has been done, your results will be reviewed and you will be notified if you need a change in treatment. ADDITIONAL INSTRUCTIONS AND INFORMATION: 1. Your care today has been supervised by a physician who is specially trained in emergency care. Many problems require more than one evaluation for a complete diagnosis and treatment. We recommend that you schedule your follow up appointment as recommended to ensure complete treatment of you illness or injury. If you are unable to obtain follow up care and continue to have a problem, or if your condition worsens, we recommend that you return to the ED. 2. We are not able to safely determine your condition over the phone nor are we able to give sound medical advice over the phone. For these safety reasons, if you call for medical advice we will ask you to come to the ED for further evaluation. 3. If you have any questions regarding these discharge instructions please call the ED at [phone]. SAFETY INFORMATION: In the interest of safety, wellness, and injury prevention; we encourage you to wear your sealbelt, if you smoke; quite smoking, and we encourage family to use a protective helmet for bicycling and other sporting events that present an increased risk for head injury. IF YOUR SYMPTOMS WORSEN OR NEW SYMPTOMS DEVELOP, OR YOU HAVE CONCERNS ABOUT YOUR CONDITION; OR IF YOUR CONDITION WORSENS WHILE YOU ARE WAITING FOR YOUR FOLLOW UP AP POINTMENT; EITHER CONTACT YOUR PRIMARY CARE DOCTOR, THE PHYSICIAN WHOSE NAME AND NUMBER YOU WERE GIVEN, OR RETURN TO THE ED IMMEDIATELY. Scripts Meclizine Hcl (MECLIZINE HCL) 25 Mg Tablet 1 TAB PO TID for dizziness, #20 TAB Prov: XOCHITL HSU DO 05/18/20 XOCHITL HSU DO May 18, 2020 04:19
[2020-05-18 05:00] VITALS: BP 127/62
[2020-05-18] MEDS ORDERED: MECL-75 PO (05:00)
--- NOTE | 2020-05-18 08:25 | RAD ---
AP chest. HISTORY: Dizzy AP view was taken of the chest. Lungs are clear. Heart is normal in size. There is no pleural effusion. IMPRESSION: 1. No acute chest disease. Electronically signed by: Matias Petersen MD (05/18/2020 8:22 AM) [id number]
== END 2020-05-18 05:32 | disposition home or self-care (01) ==
LOC: ER 21:29
DX: R42 Dizziness and giddiness (principal); R00.2 Palpitations; R51.9 Headache, unspecified; E78.00 Pure hypercholesterolemia, unspecified; I10 Essential (primary) hypertension; E03.9 Hypothyroidism, unspecified
CPT/HCPCS: 36415; 70450; 71045; 80053; 83735; 83880; 84443; 84484; 85025; 96361; 96374; 96375; 99285; J0780; J1100; J7030; J8597

== ENCOUNTER → 2020-07-20 | Outpatient (CLI) | payer OTHER ==
--- NOTE | 2020-07-21 07:51 | CARD ---
MR#: [id number] Date of Study: 07/20/2020 Ordering Physician: MISAEL HARDWICK, Referring Physician: MISAEL HARDWICK, Tech: Odalys Childs APPROVED REPORT EXAM: Two-dimensional and M-mode echocardiogram with Doppler and color Doppler. Other Information Quality : AverageHR: 74bpm INDICATION Hypertension/HCVD RISK FACTORS Hyperlipidemia 2D DIMENSIONS RVDd2.3 (2.9-3.5cm)Left Atrium(2D)3.2 (1.6-4.0cm) IVSd1.0 (0.7-1.1cm)Aortic Root(2D)2.4 (2.0-3.7cm) LVDd4.6 (3.9-5.9cm)LVOT Diameter1.9 (1.8-2.4cm) PWd0.9 (0.7-1.1cm)LVDs2.6 (2.5-4.0cm) FS (%) 43.7 %SV71.3 ml LVEF(%)75.0 (>50%) Aortic Valve AoV Peak Osei.189.6cm/sAoV VTI40.8cm AO Peak GR.14.4mmHgLVOT Peak Osei.138.1cm/s LVOT VTI 29.08cmAO Mean GR.8mmHg DAVID (VMAX)1.89xz0ODY (VTI)1.94cm2 Mitral Valve MV E Onrgujxf352.0cm/sMV DECEL DILB920gu MV A Lyegwzcn029.7cm/sMV IBA82tl E/A Ratio0.8MVA (PHT)2.75cm2 TDI E/Lateral E'14.6E/Medial E'15.8 Pulmonary Valve PV Peak Hhuaksbl57.6cm/sPV Peak Grad.4mmHg Tricuspid Valve TR P. Meclebya900jn/sRAP YOYKTFXP6jbYp TR Peak Gr.35qoNcAEGX99mhLl Pulmonary Vein S1 Nvhyyyik17.7cm/sD2 Hyoqmeox80.2cm/s PVa hzupfmvy191psjh LEFT VENTRICLE The left ventricle is normal size. There is normal left ventricular wall thickness. The left ventricu lar systolic function is normal and the ejection fraction is within normal range. The Ejection Fracti on is 60-65%. There is normal LV segmental wall motion. Transmitral Doppler flow pattern is Grade I-a bnormal relaxation pattern. RIGHT VENTRICLE The right ventricle is normal size. There is normal right ventricular wall thickness. The right ventr icular systolic function is normal. ATRIA The left atrium size is normal. The right atrium size is normal. The interatrial septum is intact wit h no evidence for an atrial septal defect or patent foramen ovale as noted on 2-D or Doppler imaging. AORTIC VALVE The aortic valve is thickened but opens well. Doppler and Color Flow revealed no significant aortic r egurgitation. There is no significant aortic valvular stenosis. Calculated aortic valve area is 1.82 cm2 with maximum pressure gradient of 19 mmHg and mean pressure gradient of 9 mmHg. MITRAL VALVE The mitral valve is normal in structure and function. There is no evidence of mitral valve prolapse. There is no mitral valve stenosis. Doppler and Color Flow revealed no mitral valve regurgitation note d. TRICUSPID VALVE The tricuspid valve is normal in structure and function. Doppler and Color Flow revealed trace tricus pid regurgitation with an estimated PAP of 38 mmHg. There is no tricuspid valve stenosis. PULMONIC VALVE The pulmonic valve is not well visualized. Doppler and Color Flow revealed trace pulmonic valvular re gurgitation. There is no pulmonic valvular stenosis. GREAT VESSELS The aortic root is normal in size. The ascending aorta is normal in size. The IVC is normal in size a nd collapses >50% with inspiration. PERICARDIAL EFFUSION There is no evidence of significant pericardial effusion. Critical Notification Critical Value: No <Conclusion> The left ventricular systolic function is normal and the ejection fraction is within normal range. Th e Ejection Fraction is 60-65%. There is normal LV segmental wall motion. Signed by : Misael Hardwick, Electronically Approved : 07/21/2020 07:51:12
== END ==
LOC: ECHO 14:55
PROVIDERS: ATTEND Internal Medicine Cardiovascular Disease
DX: I35.8 Other nonrheumatic aortic valve disorders (principal); I10 Essential (primary) hypertension
CPT/HCPCS: 93306

== ENCOUNTER → 2020-09-06 | Outpatient (CLI) | payer OTHER ==
--- NOTE | 2020-09-07 13:02 | RAD ---
DATE: 09/06/2020 3:20 PM EXAM: MAMMO DELISA SCREENING BILATERAL HISTORY: Screening COMPARISON: 01/08/2019 Bilateral CC and MLO views of the breasts were performed. Bilateral breast tomosynthesis was performed in CC and MLO projections. This study was interpreted with the benefit of Computerized Aided Detection (CAD). FINDINGS: Breast Density: FATTY The Breast Parenchyma is primarily fatty replaced. Breast parenchyma level density A. No suspicious masses, microcalcifications or architectural distortion is present to suggest malignancy in either breast. The visualized axillae are unremarkable. IMPRESSION: No mammographic evidence of malignancy. BI-RADS CATEGORY: 1 NEGATIVE RECOMMENDED FOLLOW-UP: 12M 12 MONTH FOLLOW-UP Annual screening mammography is recommended, unless clinically indicated sooner based on symptoms or change in physical exam. PQRS compliance statement: Patient information was entered into a reminder system with a target due date for the next mammogram. Mammography is a sensitive method for finding small breast cancers, but it does not detect them all and is not a substitute for careful clinical examination. A negative mammogram does not negate a clinically suspicious finding and should not result in delay in biopsying a clinically suspicious abnormality. "Our facility is accredited by the [employer] Mammography Program."
== END ==
LOC: MAMMO 15:10
PROVIDERS: ATTEND Internal Medicine
DX: Z12.31 Encounter for screening mammogram for malignant neoplasm of breast (principal)
CPT/HCPCS: 77063; 77067

== ENCOUNTER → 2021-01-06 | Outpatient (CLI) | payer OTHER ==
--- NOTE | 2021-01-06 13:34 | CARD ---
MR#: [id number] Date of Study: 01/06/2021 Ordering Physician: MISAEL VILLAR, Referring Physician: MISAEL VILLAR, Tech: APPROVED REPORT Reason for procedure: Syncope Procedure Details: After appropriate informed consent the left chest was prepped and draped in usual sterile fashion. 2 0 mL of lidocaine was instilled in the left chest. A 0.5 inch incision was made with a 11 blade scal pel. Next, a subcutaneous tunnel was created through which a Medtronic implantable loop recorder wit serial number [id number] was implanted. Adequate measurements were obtained. The incision was th en closed with Steri-Strips. No acute complications noted. <Conclusion> 1. Successful insertion of a Medtronic loop recorder for arrhythmia and syncope. Signed by : Misael Villar, Electronically Approved : 01/06/2021 13:34:19
--- NOTE | 2021-01-11 08:42 | CARD ---
MR#: [id number] Date of Study: 01/06/2021 Ordering Physician: MISAEL VILLAR, Referring Physician: MISAEL VILLAR, Tech: APPROVED REPORT Reason for procedure: Syncope Procedure Details: After appropriate informed consent the left chest was prepped and draped in usual sterile fashion. 20 mL of lidocaine was instilled in the left chest. A 0.5 inch incision was made with a 11 blade scalpel. Next, a subcutaneous tunnel was created through which a Medtronic implantable loop recorder with serial number [id number] was implanted. Adequate measurements were obtained. The incision was then closed with Steri-Strips. No acute complications noted. <Conclusion> 1. Successful insertion of a Medtronic loop recorder for arrhythmia and syncope. Signed by : Misael Villar, Electronically Approved : 01/06/2021 13:34:19 MELODY
== END | disposition home or self-care (01) ==
LOC: LINQ 12:53
PROVIDERS: ATTEND Internal Medicine Cardiovascular Disease
DX: R55 Syncope and collapse (principal); I10 Essential (primary) hypertension; E03.9 Hypothyroidism, unspecified; Z79.899 Other long term (current) drug therapy; Z98.890 Other specified postprocedural states
CPT/HCPCS: 33285; C1764

== ENCOUNTER 2021-08-04 07:27 | Observation (INO) | payer OTHER ==
[~2021-08-04] VITALS: Ht 162.6 cm; Wt 78.5 kg
[2021-08-04] VITALS (17 sets, daily range): BP systolic 84–142; BP diastolic 58–79
[2021-08-04] MEDS ORDERED: LIDOCAINE 2%/EPI 1:100,000 20 ML VIAL. ONE ×2 (07:45→10:01)
[2021-08-04] MEDS ORDERED: fentaNYL PF VIAL 100 MCG/2 ML VIAL ONE (07:48)
[2021-08-04] MEDS ORDERED: MIDAZOLAM HCL/PF 2 MG/2 ML VIAL. ONE (07:48)
[2021-08-04 08:05] LABS: CALCIUM 8.9 mg/dL (8.5-10.1); CREATININE 0.9 mg/dL (0.6-1.0); GFR 73.9; HEMATOCRIT 37.4 % (36.0-47.0); HEMOGLOBIN 12.1 g/dL (12.0-15.5); POTASSIUM 3.7 mmol/L (3.5-5.1); RED BLOOD COUNT 4.52 x10^6/uL (3.50-5.40); RED CELL DISTRIBUTION WIDTH 15.1 % (11.5-14.5); WHITE BLOOD COUNT 9.1 x10^3/uL (4.0-11.0)
[2021-08-04] MEDS ORDERED: POTA8CAP19 PO (08:06)
[2021-08-04] MEDS ORDERED: LEVO75TA5 PO (08:06)
[2021-08-04 08:14] LABS: PROTHROMBIN TIME PATIENT 12.5 SEC (11.7-14.0)
[2021-08-04] MEDS ORDERED: ceFAZolin SODIUM IV Push 1 GM VIAL. IVP ONE ×3 (08:15→15:00)
[2021-08-04] MEDS ORDERED: LIDOCAINE 2%/EPI 1:100,000 20 ML VIAL. IJ ONE (08:15)
[2021-08-04] MEDS ORDERED: MIDAZOLAM HCL/PF 2 MG/2 ML VIAL. IV ONE (08:15)
[2021-08-04] MEDS ORDERED: fentaNYL PF VIAL 100 MCG/2 ML VIAL IV ONE (08:15)
--- NOTE | 2021-08-04 08:41 | EKG ---
[facility] [address] [place] [address] Test Date: 2021-08-04 Test Time: 08:11:52 Pat Name: CARLOS RODRIGUEZ Department: Patient ID: [facility]-[id number] Room: Gender: F [employer] Operator: OSVALDO : 1945 Requested By: MISAEL VILLAR Order Number: [id number] Reading MD: Jonny Collins Measurements Intervals [place] Rate: 84 P: 30 NE: 150 QRS: -7 QRSD: 76 T: 41 QT: 376 QTc: 448 Interpretive Statements SINUS RHYTHM LEFT ATRIAL ABNORMALITY LEFTWARD AXIS Electronically Signed On 08-05-2021 13:02:17 WELDER FITTER by Jonny Collins
--- NOTE | 2021-08-04 14:18 | PDOC ---
MODERATE SEDATION ASSESSMENT RISKS/ALTERNATIVES Risks/Alternatives Risks and alternatives of this type of sedation and procedure discussed with: RISK/ALTERNATIVES: Patient H & P ON CHART H & P H & P on chart and reviewed for co-morbid conditions and appropriate labs. H&P ON CHART: Yes STATUS PREG STATUS ASSESSED: N/A MEDS/ALLERGIES REVIEWED Meds/Allergies Reviewed Medications and Allergies including time and route of recently administered narcotics and sedatives. MEDS/ALLERGIES REVIEWED: Yes ASA RATING ASA RATING: II AIRWAY ASSESSMENT Airway Assessment Airway patency, oral function limitations, presence of caps, crowns, dentures, partials, and ability to extend neck assessed. AIRWAY ASSESSMENT: Yes MALLAMPATI SCORE MALLAMPATI SCORE: II PRE-SEDATION ASSESSMENT PRE-SEDATION ASSESSMENT: Yes MISAEL VILLAR MD Aug 04, 2021 14:18
--- NOTE | 2021-08-04 14:19 | PDOC1 ---
History and Physical Visit Information Date of Admission: 08/04/2021 History of Present Illness History of Present Illness Pleasant 75 woman coming into the hospital for a planned pacemaker implantation in the setting of lightheadedness and dizziness and a greater than 5-second pause on monitoring through her loop recorder. Currently patient denies any other specific limitations. Discussed with patient and family thoroughly and th ey are agreeable to proceed Cardiac Risk Factors Comments Hypertension Dyslipidemia Sick sinus syndrome Current Medications Current Medications Current Medications Cefazolin Sodium (Ancef) 1 gm 1X ONCE IVP Last administered on 08/04/21at 09:00; Start 08/04/21 at 08:15; Stop 08/04/21 at 08:18; Status DC Cefazolin Sodium (Ancef) 1 gm STK-MED ONCE IVP ; Start 08/04/21 at 08:22; Stop 08/04/21 at 08:22; Status DC Fentanyl Citrate (Fentanyl 2ml Vial) 100 mcg 1X ONCE IV Last administered on 08/04/21at 09:14; Start 08/04/21 at 08:15; Stop 08/04/21 at 08:18; Status DC Fentanyl Citrate (Fentanyl 2ml Vial) 100 mcg STK-MED ONCE .ROUTE ; Start 08/04/21 at 07:48; Stop 08/04/21 at 07:49; Status DC Lidocaine/ Epinephrine (LIDOCAINE 2%-EPI 1:100,000 multi-dose) 20 ml 1X ONCE IJ Last administered on 08/04/21at 09:18; Start 08/04/21 at 08:15; Stop 08/04/21 at 08:18; Status DC Lidocaine/ Epinephrine (LIDOCAINE 2%-EPI 1:100,000 multi-dose) 20 ml STK-MED ON CE .ROUTE ; Start 08/04/21 at 07:45; Stop 08/04/21 at 07:45; Status DC Lidocaine/ Epinephrine (LIDOCAINE 2%-EPI 1:100,000 multi-dose) 20 ml STK-MED ONCE .ROUTE ; Start 08/04/21 at 10:01; Stop 08/04/21 at 10:02; Status DC Midazolam HCl (Versed) 2 mg 1X ONCE IV Last administered on 08/04/21at 09:14; Start 08/04/21 at 08:15; Stop 08/04/21 at 08:18; Status DC Midazolam HCl (Versed) 2 mg STK-MED ONCE .ROUTE ; Start 08/04/21 at 07:48; Stop 08/04/21 at 07:49; Status DC Allergies Allergies Allergies Coded Allergies Type Severity Reaction Last Updated Verified No Known Drug Allergies 11/27/15 No Social History Comments No alcohol, tobacco or illicit drug use Family History Comments Noncontributory ROS Review of System Negative for 10 out of 14 systems reviewed unless otherwise mentioned above in HPI Physical Exam Comments The patient appeared well nourished and normally developed. Head exam is unremarkable. No scleral icterus or corneal arcus noted. Neck is without jugular venous distension, thyromegaly, or carotid bruits. Carotid upstrokes are brisk bilaterally. Lungs are clear to auscultation and percussion. Cardiac exam reveals the PMI to be normally sized and situated. Rhythm is regular. First and second heart sounds normal. No murmurs, rubs or gallops. Abdominal exam reveals normal bowel sounds, no masses, no organomegaly and no aortic enlargement. Extremities are nonedematous and both femoral and pedal pulses are normal. Msk: No traumua Neuro: No focal deficits General: Alert Vitals VITALS Vital Signs Date Time Temp Pulse Resp B/P (MAP) Pulse Ox O2 Delivery O2 Flow Rate FiO2 08/04/21 14:14 80 15 96 Room Air 08/04/21 10:30 2.0 08/04/21 08:27 98.2 142/77 (98) 98.2 Labs Labs Laboratory Tests Test 08/04/21 07:48 White Blood Count 9.1 x10^3/uL (4.0-11.0) Red Blood Count 4.52 x10^6/uL (3.50-5.40) Hemoglobin 12.1 g/dL (12.0-15.5) Hematocrit 37.4 % (36.0-47.0) Mean Corpuscular Volume 83 fL (79-100) Mean Corpuscular Hemoglobin 27 pg (25-35) Mean Corpuscular Hemoglobin Concent 32 g/dL (31-37) Red Cell Distribution Width 15.1 % (11.5-14.5) Platelet Count 240 x10^3/uL (140-400) Prothrombin Time 12.5 SEC (11.7-14.0) Prothromb Time International Ratio 0.9 (0.8-1.1) Sodium Level 142 mmol/L (136-145) Potassium Level 3.7 mmol/L (3.5-5.1) Chloride Level 108 mmol/L (98-107) Carbon Dioxide Level 23 mmol/L (21-32) Anion Gap 11 (6-14) Blood Urea Nitrogen 16 mg/dL (7-20) Creatinine 0.9 mg/dL (0.6-1.0) Estimated GFR (Cockcroft-Gault) 73.9 Glucose Level 118 mg/dL (70-99) Calcium Level 8.9 mg/dL (8.5-10.1) Laboratory Tests Test 08/04/21 07:48 White Blood Count 9.1 x10^3/uL (4.0-11.0) Red Blood Count 4.52 x10^6/uL (3.50-5.40) Hemoglobin 12.1 g/dL (12.0-15.5) Hematocrit 37.4 % (36.0-47.0) Mean Corpuscular Volume 83 fL (79-100) Mean Corpuscular Hemoglobin 27 pg (25-35) Mean Corpuscular Hemoglobin Concent 32 g/dL (31-37) Red Cell Distribution Width 15.1 % (11.5-14.5) Platelet Count 240 x10^3/uL (140-400) Prothrombin Time 12.5 SEC (11.7-14.0) Prothromb Time International Ratio 0.9 (0.8-1.1) Sodium Level 142 mmol/L (136-145) Potassium Level 3.7 mmol/L (3.5-5.1) Chloride Level 108 mmol/L (98-107) Carbon Dioxide Level 23 mmol/L (21-32) Anion Gap 11 (6-14) Blood Urea Nitrogen 16 mg/dL (7-20) Creatinine 0.9 mg/dL (0.6-1.0) Estimated GFR (Cockcroft-Gault) 73.9 Glucose Level 118 mg/dL (70-99) Calcium Level 8.9 mg/dL (8.5-10.1) ECG EKG: NSR VTE Prophylaxis Ordered VTE Prophylaxis Devices: No VTE Pharmacological Prophylaxi: No Assessment/Plan Assessment/Plan 1. Sick sinus syndrome Plan for implantation of a dual-chamber pacemaker. Justicifation of Admission Dx: Justifications for Admission: Justification of Admission Dx: N/A MISAEL VILLAR MD Aug 04, 2021 14:19
[2021-08-04] MEDS ORDERED: oxyCODONE/APAP 5/325 1 TAB TABLET PO PRN (14:30)
[2021-08-04] MEDS ORDERED: NO ANTICOAGULANT THERAPY. MC PRN (14:30)
--- NOTE | 2021-08-04 14:38 | CARD ---
MR#: [id number] Date of Study: 08/04/2021 Ordering Physician: MISAEL VILLAR, Referring Physician: MISAEL VILLAR, Tech: APPROVED REPORT HISTORY MODERATE SEDATION TIME: 80 MINUTES FLUORO TIME: 4.4 MIN DOSE: [id number] PROCEDURES Insertion Dual Chamber Pacemaker Indication: Sick sinus syndrome with 5-second pause and lightheadedness and dizziness Procedure details: After proper informed consent the left chest was prepped and draped in usual sterile fashion. Under 1% lidocaine local anesthesia with fluoroscopic guidance 2 7 [place] sheaths were placed in the left a xillary/ subclavian vein. Next a Medtronic right ventricular lead with serial number [id number] was placed in the right ventricular apical septum. A right atrial lead with serial number [id number] w as placed in the right atrial appendage. After appropriate testing these leads were connected to a g enerator with serial number RN [id number]. The pocket was flushed with antibiotic solution and the dev ice was secured to the pectoralis fascia. Incision was then closed in 3 layers. Steri-Strips were a pplied. The patient received a biotics prior to start of the case. Next attention was turned to the previously placed loop recorder. This area in the left parasternal space was infiltrated with lidoc adore. The loop recorder was marked under fluoroscopy and a 0.5 inch incision was made and the loop r ecorder was removed without difficulty. This incision was then closed with one single interrupted 4- 0 Vicryl stitch. This was also closed with Steri-Strips. No acute complications noted. At case completion the device thresholds were as follows: Right atrium P wave 2.6, threshold 1.2 with a impedance of 585 Right ventricle R wave 17.7, threshold 0.6, impedance 654. During this case, Fluoroscopy and no contrast were used for imaging. Specimen(s) Removed: N/A Estimated Blood loss: 15 cc's. CONCLUSION 1. Successful insertion of a Medtronic dual-chamber MRI compatible pacemaker for sick sinus syndrome and symptomatic pauses Signed by : Misael Villar, Electronically Approved : 08/04/2021 14:37:59
[2021-08-04] MEDS ORDERED: ATORVASTATIN CALCIUM 10 MG TABLET. PO SCH (21:00)
[2021-08-05 02:40] VITALS: BP 105/56
[2021-08-05] MEDS ORDERED: LEVOTHYROXINE 75 MCG TABLET PO SCH (06:00)
[2021-08-05 07:00] VITALS: BP 115/80
[2021-08-05] MEDS ORDERED: MECLIZINE HCL 12.5 MG TABLET. PO PRN (08:45)
[2021-08-05] MEDS ORDERED: POTASSIUM CHLORIDE 8 MEQ PO SCH (09:00)
[2021-08-05] MEDS ORDERED: OMEGA-3 FATTY ACIDS/FISH OIL 1,000 MG CAPSULE. PO SCH (09:00)
--- NOTE | 2021-08-05 09:01 | RAD ---
EXAMINATION: Chest radiograph. VIEWS: 2 COMPARISON: 05/17/2020 INDICATION:75 years, Female, post placement. FINDINGS: Stable cardiomegaly. No focal consolidation. No pleural effusion or pneumothorax. No acute osseous pr ocess. Interval placement of left chest wall dual-lead pacemaker device with the lead wires terminate in the right atrium and right ventricle. IMPRESSION: 1. Placement left chest wall pacemaker device. No pneumothorax. 2. Stable cardiomegaly. Electronically signed by: James Riddle MD (08/05/2021 8:59 AM) [id number]
[2021-08-05 11:00] VITALS: BP 133/76
--- NOTE | 2021-08-05 11:56 | PDOC3 ---
ANTHONY BAKER ACTIVITY SPECIALIST 08/05/21 1156: Discharge Summary Visit Information Date of Admission: Aug 04, 2021 Date of Discharge: Aug 05, 2021 Admitting Diagnosis: SSS, HTN, ILR Final Diagnosis SSS, S/P PPM, ILR explanation, HTN Brief Hospital Course Allergies Allergies Coded Allergies Type Severity Reaction Last Updated Verified No Known Drug Allergies 11/27/15 No Vital Signs Vital Signs Date Time Temp Pulse Resp B/P (MAP) Pulse Ox O2 Delivery O2 Flow Rate FiO2 08/05/21 11:00 97.8 90 18 133/76 (95) 99 Room Air 97.8 08/05/21 08:00 2.0 Lab Results Laboratory Tests Test 08/04/21 07:48 White Blood Count 9.1 x10^3/uL (4.0-11.0) Red Blood Count 4.52 x10^6/uL (3.50-5.40) Hemoglobin 12.1 g/dL (12.0-15.5) Hematocrit 37.4 % (36.0-47.0) Mean Corpuscular Volume 83 fL (79-100) Mean Corpuscular Hemoglobin 27 pg (25-35) Mean Corpuscular Hemoglobin Concent 32 g/dL (31-37) Red Cell Distribution Width 15.1 % (11.5-14.5) Platelet Count 240 x10^3/uL (140-400) Prothrombin Time 12.5 SEC (11.7-14.0) Prothromb Time International Ratio 0.9 (0.8-1.1) Sodium Level 142 mmol/L (136-145) Potassium Level 3.7 mmol/L (3.5-5.1) Chloride Level 108 mmol/L (98-107) Carbon Dioxide Level 23 mmol/L (21-32) Anion Gap 11 (6-14) Blood Urea Nitrogen 16 mg/dL (7-20) Creatinine 0.9 mg/dL (0.6-1.0) Estimated GFR (Cockcroft-Gault) 73.9 Glucose Level 118 mg/dL (70-99) Calcium Level 8.9 mg/dL (8.5-10.1) Brief Hospital Course Ms. Ignacio is a 75 old female admitted for PPM placement and ILR explanation. She was noted with sick sinus syndrome with 5-second pause and lightheadedness a nd dizziness. She had successful insertion of a Medtronic dual-chamber MRI compatible pacemaker. Repeat interrogation is pending. No immediate complications, tolerated procedure well. Denies any significant surgical pain and no chest pain, SOA. AOx3, LSCTA, left chest surgical incision intact with steri strips, no erythema or swelling, neurovascular status to LUE intact. Sling in place. Reviewed post PPM instructions. VSS. No changes to home medications. Follow up in office as scheduled. Discharge Information Condition at Discharge: Stable Follow Up: Weeks (2) Disposition/Orders: D/C to Home Scheduled Amlodipine Besylate (Amlodipine Besylate) 10 Mg Tablet, 10 MG PO DAILY, (Reported) Entered as Reported by: SASCHA ALVARES on 08/23/16123 Last Taken: Unknown Dose on 08/04/21 Last Action: Continued on 08/05/21840 by Ari Cazares Hydralazine Hcl (Hydralazine Hcl) 50 Mg Tablet, 1 TAB PO TID, #270 Ref 3 (Reported) Entered as Reported by: SASCHA ALVARES on 08/23/16123 Last Taken: Unknown Dose on 08/03/21 Last Action: Continued on 08/05/21840 by Ari Cazares Levothyroxine Sodium (Levothyroxine Sodium) 75 Mcg Tablet, 75 MCG PO DAILYAC for THYROID SUPPLEMENT, #30 Ref 0 (Reported) Entered as Reported by: LATOYA CURRAN on 08/04/21805 Last Taken: Unknown Dose on 08/03/21 Last Action: Continued on 08/04/212000 by MIGUELINA SHAW RN [place]-3S/Dha/Epa/Fish Oil (Fish Oil 1,000 mg Softgel) 1 Each Capsule, 1 EACH PO DAILY, (Reported) Entered as Reported by: Selin Alvarez on 11/03/17 09 Last Taken: Unknown Dose on 08/03/21 Last Action: Converted on 08/05/21840 by Ari Cazares Potassium Chloride (Potassium Chloride) 8 Meq Capsule.er, 8 MEQ PO DAILY for supplement, (Reported) Entered as Reported by: LATOYA CURRAN on 08/04/21805 Last Taken: Unknown Dose on 08/03/21 Last Action: Converted on 08/05/21840 by Ari Cazares Pravastatin Sodium (Pravastatin Sodium) 20 Mg Tablet, 1 TAB PO QHS, #90 Ref 1 (Reported) Entered as Reported by: SASCHA GIORGIO on 08/23/16 0124 Last Taken: Unknown Dose on 08/03/21 Last Action: Converted on 08/04/212000 by MIGUELINA SHAW RN Scheduled PRN Meclizine Hcl (Meclizine Hcl) 25 Mg Tablet, 1 TAB PO TID PRN for dizziness, #90 (Reported) Entered as Reported by: Selin Alvarez on 11/03/17 0900 Last Taken: Unknown Dose on 08/03/21 Last Action: Converted on 08/05/21 0841 by Ari Cazares Miscellaneous Medications Calcium Carbonate (Calcium) 500 Mg Tab.chew, 500 MG PO, (Reported) Entered as Reported by: BEBETO ORO on 05/06/19 2350 Patient Instructions Patient Instructions Must know & what to expect after device implant: 1. Your surgical dressing should be removed prior to discharge from the hospital, but allow the steri- strips to fall off naturally. 2. Activity restrictions: DO NOT raise arm above shoulder level, lift anything heavier than a gallon of milk, and no push or pull motions such as vacuuming/lawn mowing, no swinging motions (golf), etc for 4 weeks. 3. It is OK to use a cell phone or other electronic devices just be sure you do not store it in a breast pocket on the side where the device was placed. 4. Device will be interrogated prior to your discharge from the hospital and then every 3 months for defibrillators and every 6 months for pacemakers. You may be asked to have your device checked remotely from home as well, but this will depend on your particular physicians preference. 5. You may remove the arm immobilizer the day after device placement. Wear the arm immobilizer/splint at night (during sleep times) for 2 week to prevent unintended arm movement that can cause lead dislodgement. 6. Do not drive for one week as the task of driving may lead to unintended arm motion that may cause lead dislodgement. The seatbelt will also rub against the incision site & cause irritation. 7. It is our recommendation that you utilize Tylenol at home for pain control. You need to call our office if you are having uncontrollable pain at the incision site. 8. Keep your incision clean and dry. It is OK to shower. DO NOT submerge in bath, pool, or hot tub, until cleared by your doctor, as this could lead to increase risk of infection.. It is OK to use regular soap just do not scrub the incision site. Water spray from shower should not directly hit the incision. Be sure to blot dry not rub. 9. Inspect your incision daily. If you notice any increased redness, swelling, or drainage, or if you start running a fever, call the office immediately. The number is [phone]. 10. For women, if you need to protect against irritation from the bra straps, you can place a piece of gauze over the incision site for cushion. Please be sure to tape it loosely to allow air to the site & remove the gauze when you remove the bra. 11. Be sure to carry your device identification information card in your wallet/purse at all times. 12. It is OK to go through security at the airport with your device, but be sure to let the TSA know prior to proceeding as the security settings change depending on varying factors. Please do whatever is requested by security at that time. 13. Some of the newer devices may be MRI compatible but, currently, the use of these devices is not widespread, so you likely will not be able to have an MRI. Please clarify this with your physician. If at any time, you feel lightheaded or dizzy/faint, stop what you are doing & lie down immediately. If you are driving, get to the side of the road quickly, turn your car off & call 911 on your cell phone. DO NOT continue to drive as this may cause an accident that seriously injures yourself &/or others. Call the office at [phone] for any questions or concerns. Justicifation of Admission Dx: Justifications for Admission: Justification of Admission Dx: N/A MISAEL VILLAR MD 08/05/21 2468: Discharge Summary Brief Hospital Course Brief Hospital Course Patient seen and examined. Agree with above nurse practitioner note. Chest x-ray reviewed. Interrogation reviewed. No acute findings. Stable for discharge. Discharge Information Scheduled Amlodipine Besylate (Amlodipine Besylate) 10 Mg Tablet, 10 MG PO DAILY, (Reported) Entered as Reported by: SASCHA ALVARES on 08/23/16123 Last Taken: Unknown Dose on 08/04/21 Last Action: Continued on 08/05/21840 by Ari Cazares Hydralazine Hcl (Hydralazine Hcl) 50 Mg Tablet, 1 TAB PO TID, #270 Ref 3 (Reported) Entered as Reported by: SASCHA ALVARES on 08/23/16123 Last Taken: Unknown Dose on 08/03/21 Last Action: Continued on 08/05/21840 by Ari Cazares Levothyroxine Sodium (Levothyroxine Sodium) 75 Mcg Tablet, 75 MCG PO DAILYAC for THYROID SUPPLEMENT, #30 Ref 0 (Reported) Entered as Reported by: LATOYA CURRAN on 08/04/21805 Last Taken: Unknown Dose on 08/03/21 Last Action: Continued on 08/04/212000 by MIGUELINA SHAW RN [place]-3S/Dha/Epa/Fish Oil (Fish Oil 1,000 mg Softgel) 1 Each Capsule, 1 EACH PO DAILY, (Reported) Entered as Reported by: Selin Alvarez on 11/03/17 0904 Last Taken: Unknown Dose on 08/03/21 Last Action: Converted on 08/05/21840 by Ari Cazares Potassium Chloride (Potassium Chloride) 8 Meq Capsule.er, 8 MEQ PO DAILY for supplement, (Reported) Entered as Reported by: LATOYA CURRAN on 08/04/21805 Last Taken: Unknown Dose on 08/03/21 Last Action: Converted on 08/05/21840 by Ari Cazares Pravastatin Sodium (Pravastatin Sodium) 20 Mg Tablet, 1 TAB PO QHS, #90 Ref 1 (Reported) Entered as Reported by: SASCHA ALVARES on 08/23/16123 Last Taken: Unknown Dose on 08/03/21 Last Action: Converted on 08/04/212000 by MIGUELINA SHAW RN Scheduled PRN Meclizine Hcl (Meclizine Hcl) 25 Mg Tablet, 1 TAB PO TID PRN for dizziness, #90 (Reported) Entered as Reported by: Selin Alvarez on 11/03/17 0900 Last Taken: Unknown Dose on 08/03/21 Last Action: Converted on 08/05/21840 by Ari Cazares Miscellaneous Medications Calcium Carbonate (Calcium) 500 Mg Tab.chew, 500 MG PO, (Reported) Entered as Reported by: BEBETO ORO on 05/06/19 0545 ANTHONY BAKER APRN Aug 05, 2021 11:56 MISAEL VILLAR MD Aug 05, 2021 17:48
--- NOTE | 2021-08-05 12:02 | NUR ---
SS following for discharge planning. SS reviewed pt chart and discussed with pt RN. Pt is from home and is currently on room air. Cardiology following. Pacemaker placed on 08/04/2021. Discharge plan is currently to home when medically ready for discharge. Probable discharge to home later today if medically ready. SS will continue to follow for discharge planning.
[2021-08-05 13:29] VITALS: BP 133/76
--- NOTE | 2021-08-05 15:30 | NUR ---
DISCHARGED PATIENT TO HOME. PIV AND HEART MONITOR REMOVED. DISCHARGE INSTRUCTIONS GIVEN TO PATIENT AND FAMILY. ESCORTED PATIENT OFF UNIT PER WHEELCHAIR INTO A PRIVATE VEHICLE.
== END 2021-08-05 15:30 | disposition home or self-care (01) ==
LOC: CCL 07:27 → 6 SOUTH 08:10
PROVIDERS: ADMIT Internal Medicine Cardiovascular Disease; ATTEND Internal Medicine Cardiovascular Disease
DX: I44.2 Atrioventricular block, complete (principal); I49.5 Sick sinus syndrome; I10 Essential (primary) hypertension; E78.5 Hyperlipidemia, unspecified; R42 Dizziness and giddiness; Z51.81 Encounter for therapeutic drug level monitoring; Z79.899 Other long term (current) drug therapy; Z95.0 Presence of cardiac pacemaker
CPT/HCPCS: 33208; 33286; 36415; 71046; 80048; 85027; 85610; 93005; 96374; 96376; 99152; 99153; C1785; G0378; G0379; J0690; J2250; J3010; J3490

== ENCOUNTER → 2021-10-25 | Outpatient (CLI) | payer OTHER ==
[~2021-10-25] MED LIST changes: +POTA8CAP19 PO
--- NOTE | 2021-10-25 13:47 | RAD ---
BILATERAL SCREENING MAMMOGRAM History: Routine screening. Comparison: Most recently on 09/06/2020. Technique: Routine 2D and 3D tomosynthesis digital mammogram views were obtained bilaterally. Interpr etation was assisted with the use of computer-aided detection. Findings: Breast Tissue Density A : The breasts are almost entirely fatty. There are no dominant masses, suspicious microcalcifications, or architectural distortion. IMPRESSION: No mammographic evidence of malignancy. Recommend routine screening mammography in one year. BI-RADS category 1: Negative. Patient information is entered into the reminder system with a target due date for the next screening mammogram. "Our facility is accredited by the [employer] Mammography Program." Electronically signed by: FILOMENA SPARKS MD (10/25/2021 1:44 PM) [id number]
== END ==
LOC: MAMMO 12:43
PROVIDERS: ATTEND Internal Medicine
DX: Z12.31 Encounter for screening mammogram for malignant neoplasm of breast (principal)
CPT/HCPCS: 77063; 77067